=== PATIENT | male | born 1945 | race Caucasian/White ===

== ENCOUNTER 2019-03-16 07:28 | Observation (INO) | payer OTHER, MEDICAID ==
--- NOTE | ~2019-03-16 | H ---
[address] [address] HISTORY AND PHYSICAL Name: KEN LAZARO Room: [address] Allison Phillips#: [id number] Admission: 03/16/19 Attend Phys: Rikki Stone Discharge: 03/17/19 Date of : 49 Report #: [id number] THIS REPORT FOR: //name// For History and Physical please refer to the handwritten note in the patient's medical record. By: 1453Medical Records Staff DOUG /BLAIR
[~2019-03-16 07:28] MED LIST: ADVAIR 250-501 EACH INH; ADVAIR 500-501 EACH INH; GLIMEPIRIDE1 MG PO; IPRAT-ALBUT 0.5-3 ML INH; LEVAQUIN 500 M500 M1 PO; LIPITOR 20 MG T20 M1 PO; NORVASC 5 MG TAB5 MG PO; PREDNISONE 10 M10 M1; PROAIR HFA8.5 GM INH; SINGULAIR 10 MG10 M1 PO; VENTOLIN HFA 1818 GM; [UNRECOGNIZED DRUG - REMARK] PO
[2019-03-16 08:08] LABS: HEMATOCRIT 42.1 % (42.0-52.0); HEMOGLOBIN 14.3 gm/dL (14.0-18.0); MCH 30.5 pg (26.0-34.0); MCV 89.7 fL (80.0-100.0); MPV 7.7 fl. (7.2-11.1); RBC 4.69 mil/uL (4.50-6.00); WBC 4.7 thou/uL (4.0-11.0)
[2019-03-16 08:09] LABS: CALCIUM 9.1 mg/dL (8.5-10.1); CREATININE 0.8 mg/dL (0.6-1.3); POTASSIUM 3.5 mmol/L (3.5-5.1)
[2019-03-16 08:14] LABS: ALBUMIN 3.4 g/dL (3.4-5.0); TOTAL BILIRUBIN 0.6 mg/dL (<0.1-1.0); TOTAL PROTEIN 7.4 g/dL (6.4-8.2)
--- NOTE | 2019-03-16 16:58 | EKG ---
[place] [address] ELECTROCARDIOGRAM REPORT Name: KEN LAZARO Room: [address] M.R.#: [id number] Admission: 03/16/19 Attend Phys: Rikki Stone Discharge: Date of : 49 Report #: [id number] THIS REPORT FOR: //name// [facility] Test Date: 2019-03-16 Test Time: 07:45:04 Pat Name: KEN LAZARO Department: Room: [facility] Gender: M Calender Supervisor: : 1945 Requested By: Oc Ch Order Number: [id number] Italia MD: Jos Randolph Measurements Intervals [place] Rate: 83 P: 32 MI: 156 QRS: 80 QRSD: 110 T: QT: 415 QTc: 488 Interpretive Statements Sinus rhythm Atrial premature complexes Low voltage, extremity leads Borderline prolonged QT interval No previous ECG available for comparison Minor IVCD Electronically Signed On 03-16-2019 16:58:08 CDT by Jos Randolph [email or web address] <ELECTRONICALLY SIGNED> By: Jos Randolph MD, [facility] 03/16/19 1658 Jos Randolph MD, FAC /EPI
[2019-03-16 20:03] VITALS: BP 135/84
[2019-03-17] VITALS: BP 126/64
[2019-03-17 07:15] VITALS: BP 124/66
[2019-03-17] MEDS ORDERED: OXYCODONE HCL 55 MG PO (09:20)
[2019-03-17] MEDS ORDERED: IBUPROFEN 600600 M1 PO (09:20)
[2019-03-17] MEDS ORDERED: TYLENOL 8 HOUR650 MG PO (09:21)
[2019-03-17] MEDS ORDERED: LIDOCAINE 2%2 %/5 GM TOP (09:22)
[2019-03-17 09:27] VITALS: BP 124/66
--- NOTE | 2019-03-17 17:06 | PATH ---
[address] [address] PATHOLOGY RPT PROCEDURE Name: KEN LAZARO Room: [address] Allison Phillips#: [id number] Admission: 03/16/19 Date of : 49 Discharge: 03/17/19 Report #: [id number] Path Case #: [id number] LCA Accession Number: [id number] . 01 Material submitted: . hemorrhoids - INTERNAL AND EXTERNAL HEMORRHOIDS. Modifiers: external, INTERNAL . 01 Clinical history: . Internal/external hemorrhoid . 02 Diagnosis: Internal and external hemorrhoids: - Benign skin and colonic mucosa with prominent hemorrhoids showing focal organizing thrombosis. (LILI:tj; 03/17/2019) MBR 03/17/2019 1557 Local . 02 Electronically signed: . Asa Melendez MD, Pathologist NPI- [id number] . 01 Gross description: . Received in formalin labeled "Brown, Ken, internal and external hemorrhoids," are 6 segments of gardner-pink epithelial covered tissue ranging from 1.0 x 0.6 x 0.5 to 2.5 x 2.0 x 1.6 cm in maximum dimensions. The epithelial surfaces appear intact, without grossly apparent lesions. On cut section, the subepithelial tissue has a highly vascular appearance. Earthmoving Plant Operator tissue is submitted in cassettes A1-A3. (TSD; 03/16/2019) TOB/TOB 03/16/20191958 Local . 02 Pathologist provided ICD-10: K64.9 . 02 CPT . 835443 Specimen Comment: A courtesy copy of this report has been sent to Specimen Comment: [phone], . Specimen Comment: Report sent to / DR DMOINIQUE Performed at: [address], [place], [place] [id number] MD Lucien Pollock MD Phone: [phone] Performed at: 02 [facility] [address], [place], [place] [address] MD Asa Melendez MD Phone: [phone]
--- NOTE | 2019-03-24 12:56 | OP ---
[address] [address] OPERATIVE REPORT Name: TEJASKEN Jadiel Room: [address] Allison Phillips#: [id number] Admission: 03/16/19 Attend Phys: Rikki Stone Discharge: 03/17/19 Date of : 49 Report #: [id number] THIS REPORT FOR: //name// CC: Aftab Ch DICTATED BY: Arash Flannery DO DATE OF SERVICE: 03/16/2019 Patient of Oc Ch DO PREOPERATIVE DIAGNOSES: Internal and external hemorrhoids. POSTOPERATIVE DIAGNOSES: Internal and external hemorrhoids. SURGEON: Oc Ch DO ORTHODONTIST ASSISTANT: Arash Flannery DO, PGY-4 OPERATION PERFORMED: Internal and external hemorrhoidectomy of 3 columns. ESTIMATED BLOOD LOSS: 10. SPECIMEN: Hemorrhoids. COMPLICATIONS: None. INDICATIONS: The patient is a 73-year-old male with history of rectal bleeding. He was found on physical exam to have internal and external hemorrhoids that were the suspected source of bleeding. He did have a history of colonoscopy and was told to follow up in a shorter timeframe; however, he has failed to do so. He was informed of the risks and benefits of EUA and hemorrhoidectomy. He understood the risks and decided to proceed with surgery. He was encouraged to follow up for further colonoscopy examinations. TECHNIQUE: After informed consent was obtained, the patient was brought to the operating room and placed in the supine position. SCDs were on and running. Preoperative antibiotics were delivered. General anesthesia was administered with an LMA. The patient was placed into lithotomy and prepped and draped in the usual sterile fashion. A surgical pause was held to confirm proper patient and procedure. A digital rectal examination was performed. There were no palpable rectal masses or abnormalities. A Miller anoscope was placed into the anus and a circumferential inspection of the anal and rectal mucosa was undertaken. There were near circumferential external and internal hemorrhoids, the worst of which were the right anterior and left lateral[place] [address] OPERATIVE REPORT Name: KEN LAZARO Room: [address] MHolly.#: [id number] Admission: 03/16/19 Attend Phys: Rikki Stone Discharge: 03/17/19 Date of : 49 Report #: [id number] upon to perform an internal and external hemorrhoidectomy. The hemorrhoid column was grasped with an Allis and elevated. LigaSure small jaw energy device was used to amputate the hemorrhoidal tissue with care to stay away from the sphincter muscle. Dissection was carried up the length of the hemorrhoidal column until the apex was encountered and transected using the small jaw. This was carried out on the right anterior followed by the left lateral in the right posterior columns. A narrow additional column in the left posterior position was also excised. There was anoderm intact in between all excised columns. Two fingers easily fit into the anus and there was no evidence of stenosis. All of the excision beds were hemostatic. They were examined once more and continued to be hemostatic. Lidocaine jelly was then placed on the wounds. A 0.5% Marcaine with epi was injected circumferentially around the anal region as well as a bilateral pudendal nerve block. The patient tolerated the procedure well. His anus was washed and dressed with just the lidocaine jelly and ABD. He was emerged from anesthesia and transferred to the PACU in stable condition with plans to be admitted for observation for social reasons. <ELECTRONICALLY SIGNED> By: Oc Ch DO 03/24/19 1256 1026 1049Oc Ch DO /nt
== END 2019-03-17 10:28 | disposition home or self-care (01) ==
LOC: M.SUR 07:28 → M.TBA 10:21 → M.SUR 14:37 → M.3W 19:50
PROVIDERS: ADMIT Surgery
DX: K64.4 Residual hemorrhoidal skin tags (principal); K64.8 Other hemorrhoids; Z79.899 Other long term (current) drug therapy

== ENCOUNTER → 2019-03-28 | Outpatient (CLI) | payer MEDICARE, MEDICAID ==
[~2019-03-28] MED LIST changes: +IBUPROFEN 600600 M1 PO; +LIDOCAINE 2%2 %/5 GM TOP; +OXYCODONE HCL 55 MG PO; +TYLENOL 8 HOUR650 MG PO
== END ==
LOC: M.ULTRA 13:38
DX: N64.4 Mastodynia (principal); R92.8 Other abnormal and inconclusive findings on diagnostic imaging of breast; J44.9 Chronic obstructive pulmonary disease, unspecified

== ENCOUNTER 2019-08-01 15:29 | Inpatient (IN) | payer OTHER, MEDICAID ==
[~2019-08-01] VITALS: Ht 180.3 cm; Wt 101.2 kg
[2019-08-01 15:36] VITALS: BP 142/82
[2019-08-01 16:16] LABS: ABSOLUTE LYMPHOCYTES 1.1 thou/uL (0.8-5.3); ABSOLUTE MONOCYTES 0.8 thou/uL (0.0-1.2); ABSOLUTE NEUTROPHILS 7.2 thou/uL (1.6-8.1); BASOPHILS 0.2 %; EOSINOPHILS 0.1 %; HEMATOCRIT 44.2 % (42.0-52.0); HEMOGLOBIN 14.9 gm/dL (14.0-18.0); LYMPHOCYTES 12.4 %; MCH 30.1 pg (26.0-34.0); MCHC 33.7 g/dL (28.0-37.0); MCV 89.5 fL (80.0-100.0); MPV 8.3 fl. (7.2-11.1); NUCLEATED RBCS 0 /100WBC; PLATELET COUNT* 242 thou/uL (150-400); POLYS 78.3 %; RBC 4.93 mil/uL (4.50-6.00); WBC 9.2 thou/uL (4.0-11.0)
[2019-08-01 16:25] LABS: CREATININE 1.4 mg/dL (0.6-1.3); POTASSIUM 3.9 mmol/L (3.5-5.1)
[2019-08-01 16:28] LABS: APTT 26.8 Seconds (25.0-31.3); PROTIME 10.3 Seconds (9.20-11.50)
[2019-08-01 16:40] LABS: ALBUMIN 3.7 g/dL (3.4-5.0); CK-MB MASS 22.7 ng/mL (<0.5-3.6); TOTAL BILIRUBIN 0.8 mg/dL (<0.1-1.0); TOTAL PROTEIN 8.4 g/dL (6.4-8.2)
[2019-08-01 16:59] LABS: INFLUENZA A ANTIGEN Negative (Negative); INFLUENZA B ANTIGEN Negative (Negative)
[2019-08-01 17:37] VITALS: BP 147/70
[2019-08-01 18:00] VITALS: BP 167/89
--- NOTE | 2019-08-01 19:35 | NUR ---
RECEIVED PT FROM ER AT 1800. GET SITUATED TO ROOM. TELE IN PLACED TRACING SR. AOX4, UP WITH ASSIST, FALL PRECAUTION, O2 SAT 90'S 2L NC. WOUND ON L ELBOW NOTED. GIVE REPORT TO BINDU LAZO.
[2019-08-01 19:55] VITALS: BP 152/73
[2019-08-01 23:54] LABS: BE -5.5 mmol/L (-2 to +3); PCO2 43.6 mmHg (35.0-45.0); PO2 81.9 mmHg (75.0-100.0)
[2019-08-01 23:57] LABS: pH 7.297 (7.340-7.450)
[2019-08-02 00:19] VITALS: BP 134/70
--- NOTE | 2019-08-02 04:02 | NUR ---
ASSUMED CARE OF PT AT 1900. PT IS ALERT AND ORIENTED. PERRLA. NO COMPLAINTS OF PAIN. PT WAS VERY SOA AT THE BEGINNING OF THE SHIFT., PT WAS GIVEN LASIX AND AFTER URINATING SEVERAL TIMES HIS WORK OF BREATHIG DECREASED. PT IS ON 2 LITERS OF O2. PT IS IN AN IRREGULAR RYTHM ON THE TELEMETRY. PT IS RESTING COMFORTABLY IN BED. RESPIRATIONS ARE EVEN AND NONNLABORED. WILL CONTINUE TO MONITOR PT.
[2019-08-02 04:08] VITALS: BP 119/53
[2019-08-02 04:11] LABS: HEMATOCRIT 40.9 % (42.0-52.0); HEMOGLOBIN 13.7 gm/dL (14.0-18.0); MCH 30.3 pg (26.0-34.0); MCHC 33.6 g/dL (28.0-37.0); RBC 4.54 mil/uL (4.50-6.00); RDW-CV 15.2 % (10.5-14.5)
[2019-08-02 04:38] LABS: ALBUMIN 3.2 g/dL (3.4-5.0); CALCIUM 8.1 mg/dL (8.5-10.1); CREATININE 1.4 mg/dL (0.6-1.3); MAGNESIUM 2.2 mg/dL (1.8-2.4); POTASSIUM 4.4 mmol/L (3.5-5.1); TOTAL BILIRUBIN 0.4 mg/dL (<0.1-1.0); TOTAL PROTEIN 7.5 g/dL (6.4-8.2)
[2019-08-02 07:40] VITALS: BP 122/69
[2019-08-02 08:58] LABS: URINE BILIRUBIN NEGATIVE (Negative); URINE BLOOD TRACE (Negative); URINE CLARITY CLEAR; URINE COLOR YELLOW; URINE GLUCOSE-RANDOM NEGATIVE (Negative); URINE KETONES NEGATIVE (Negative); URINE LEUKOCYTES-REFLEX NEGATIVE (Negative); URINE NITRITE-REFLEX NEGATIVE (Negative); URINE PROTEIN NEGATIVE (Negative); URINE SPECIFIC GRAVITY 1.025 (1.005-1.030); URINE UROBILINOGEN 0.2 E.U./dl (0.2-1.0)
[2019-08-02 11:17] VITALS: BP 129/67
--- NOTE | 2019-08-02 12:08 | NUR ---
ASSUMED PT CARE AT 0800, AOX4, UP AD BHAVIN, O2 SAT 90'S 3L NC. TRACING SR ON TELE. PT COMPLAIN MILD PAIN ON L ELBOW WOUND. GOT AN ORDER FOR PAIN MEDS. PT ACCU CHECK, STARTED ON LOW DOSE SLIDING SCALE. PT HAS NEUROLOGY, VASCULAR, NEPHROLOGY CONSULT. PT ON FALL PRECAUTION. FELL AT HOME. VSS, AM ASSESSMENT CHARTED. HOURLY ROUNDING, CALL LIGHT WITHIN REACH, WILL CONTINUE TO MONITOR.
--- NOTE | 2019-08-02 14:45 | NUR ---
Pt is A&O. Resides at home alone. Independent. No DME. No hx of HH or SNF. Pt states that he does have a nurse through his insurance that comes out to see him. Goal is home at [place]. Following.
[2019-08-02 16:00] VITALS: BP 104/54
--- NOTE | 2019-08-02 16:27 | EKG ---
[place] [address] ELECTROCARDIOGRAM REPORT Name: EKN LAZARO Room: [address] ADM IN [facility]#: [id number] Admission: 08/01/19 Attend Phys: Carlos Manuel Villa Discharge: Date of : 49 Date of Service: 08/01/19 1538 Report #: [id number] THIS REPORT FOR: //name// [facility] ED Test Date: 2019-08-01 Test Time: 15:38:09 Pat Name: KEN LAZARO Department: Room: [facility] Gender: M Tariff Compiling Clerk: BRIT : 1945 Requested By: Ronald Cruz Order Number: [id number] MD: Jos Randolph Measurements Intervals [place] Rate: 89 P: 48 OK: 160 QRS: 89 QRSD: 106 T: 57 QT: 460 QTc: 560 Interpretive Statements Sinus rhythm Borderline right axis deviation Low voltage, precordial leads Borderline abnrm T, anterolateral leads Prolonged QT interval Compared to ECG 03/16/2019 07:45:04 Atrial premature complex(es) no longer present Electronically Signed On 08-02-2019 16:26:40 CDT by Jos Randolph [email or web address] <ELECTRONICALLY SIGNED> By: Jos Randolph MD, FACC 08/02/19 1626 1538 1538 Jos Randolph MD, [facility] /EPI
--- NOTE | 2019-08-02 16:30 | EKG ---
[place] [address] ELECTROCARDIOGRAM REPORT Name: KEN LAZARO Room: [address] ADM IN ..#: [id number] Admission: 08/01/19 Attend Phys: Carlos Manuel Villa Discharge: Date of : 49 Date of Service: 08/01/192005 Report #: [id number] THIS REPORT FOR: //name// [facility] Test Date: 2019-08-01 Test Time: 20:06:42 Pat Name: KEN LAZARO Department: Room: [address] Gender: M Energy Professional: [email or web address] : 1945 Requested By: Carlos Manuel Jaramillo Order Number: [id number] Italia MD: Jos Randolph Measurements Intervals [place] Rate: 103 P: 51 IA: 176 QRS: 108 QRSD: 109 T: 243 QT: 367 QTc: 481 Interpretive Statements Sinus tachycardia Premature atrial complexes Right axis deviation Nonspecific T abnrm, anterolateral leads Borderline prolonged QT interval Compared to ECG 03/16/2019 07:45:04 Right-axis deviation now present Electronically Signed On 08-02-2019 16:29:15 CDT by Jos Randolph [email or web address] <ELECTRONICALLY SIGNED> By: Jos Randolph MD, [facility] 08/02/19 1629 05 05 Jos Randolph MD, [facility] /EPI
--- NOTE | 2019-08-02 16:31 | EKG ---
[place] [address] ELECTROCARDIOGRAM REPORT Name: KEN LAZARO Room: [address] ADM IN ..#: [id number] Admission: 08/01/19 Attend Phys: Carlos Manuel Villa Discharge: Date of : 49 Date of Service: 08/01/1920[address] Report #: [id number] THIS REPORT FOR: //name// [facility] Test Date: 2019-08-01 Test Time: 20:26:25 Pat Name: KEN LAZARO Department: Room: [address] Gender: M Technology Sales Consultant: [email or web address] : 1945 Requested By: Carlos Manuel Jaramillo Order Number: [id number] Italia MD: Jos Randolph Measurements Intervals [place] Rate: 132 P: 60 ME: 51 QRS: 60 QRSD: 112 T: 255 QT: 282 QTc: 418 Interpretive Statements Sinus tachycardia with frequent and consecutive recurrent PACs Incomplete right bundle branch block Anteroseptal infarct, old possible Nonspecific T abnormalities, lateral leads Baseline wander in lead(s) V1,V4 Compared to ECG 03/16/2019 07:45:04 Incomplete right bundle-branch block now present Myocardial infarct finding now present T-wave abnormality now present Electronically Signed On 08-02-2019 16:30:30 CDT by Jos Randolph [email or web address] <ELECTRONICALLY SIGNED> By: Jos Randolph MD, [facility] 08/02/191629 25 25 Jos Randolph MD, [facility] /EPI
[2019-08-02 19:45] VITALS: BP 152/73
[2019-08-03] VITALS: BP 125/68
--- NOTE | 2019-08-03 01:55 | NUR ---
ASSUMED CARE OF PT AT 1900. PT IS ALERT AND ORIENTED. VSS. PERRLA. NO COMPLAINTS OF PAIN. PT IS IN SINUS RYTHM ON THE TELEMETRY. PT IS RESTING COMFORTABLY IN BED. RESPIRATIONS ARE EVEN AND NONLABORED. WILL CONTINUE TO MONITOR PT.
[2019-08-03 05:46] LABS: HEMATOCRIT 40.3 % (42.0-52.0); HEMOGLOBIN 13.6 gm/dL (14.0-18.0); MCH 30.3 pg (26.0-34.0); MCHC 33.8 g/dL (28.0-37.0); MCV 89.8 fL (80.0-100.0); MPV 8.1 fl. (7.2-11.1); RBC 4.49 mil/uL (4.50-6.00); RDW-CV 15.1 % (10.5-14.5); WBC 5.7 thou/uL (4.0-11.0)
[2019-08-03 06:10] LABS: ALBUMIN 2.9 g/dL (3.4-5.0); CALCIUM 8.4 mg/dL (8.5-10.1); CREATININE 0.8 mg/dL (0.6-1.3); MAGNESIUM 2.3 mg/dL (1.8-2.4); PHOSPHORUS* 3.2 mg/dL (2.5-4.9); POTASSIUM 4.6 mmol/L (3.5-5.1)
[2019-08-03 08:56] VITALS: BP 105/48
[2019-08-03 12:15] VITALS: BP 103/62
--- NOTE | 2019-08-03 12:42 | CON ---
[address] [address] CONSULTATION Name: TEJASDANAEKEN A Room: [address] IN ..#: [id number] Admission: 08/01/19 Attend Phys: Carlos Manuel Jaramillo, Discharge: Date of : 49 Report #: [id number] THIS REPORT FOR: //name// cc: Aftab La DO Aftab La DO ~ THIS REPORT FOR: //name// CC: Aftab Jaramillo DATE OF SERVICE: 08/02/2019 INFECTIOUS DISEASE CONSULTATION ATTENDING PHYSICIAN: Carlos Manuel Jaramillo MD REASON FOR EVALUATION: Positive blood culture with Gram-positive cocci. The patient had an episode of consciousness. HISTORY OF PRESENT ILLNESS: Chart reviewed, the patient examined. This is a 74-year-old who apparently lives by himself, does have a history of high blood pressure, who has had 2 episodes in the last 48 hours where he woke up on the floor, one was by his bed. He was unaware of any antecedent issues. Both times was in the middle of the night. This was complicated by profuse sweating. He is unaware of any fevers or chills. Denies significant pulmonary or gastrointestinal-related complaints, although he is on supplemental oxygen at this point. As per the evaluation, blood cultures were collected, 1/2 now with Gram-positive cocci, found to have a slightly elevated lactic acid of 2.4. Chest x-ray was, otherwise, unremarkable with exception of a nodule in left upper lobe and in the right lower lobe, calcified granuloma. He was found to have mildly elevated AST as well. Flu antigen and rapid strep were negative. Imaging studies of the chest and abdomen, former showed extensive centrilobular emphysematous changes, peribronchial wall thickening, question of a bronchitis. CT of the pelvis, cystic changes of the kidneys, some aneurysmal change of the infraabdominal aorta. With results of the positive blood culture, he was started empirically on parenteral vancomycin. At this point, he denies any significant pain or discomfort. No pulmonary or gastrointestinal-related complaints. He is generally lucid. ALLERGIES: None known. MEDICINES: Include glimepiride, enoxaparin, oxycodone, insulin lispro, amlodipine, Zosyn, methylprednisolone, ipratropium and albuterol inhaler, budesonide, and aspirin. PAST MEDICAL HISTORY: History of hypertension, diabetes mellitus, [place] [address] CONSULTATION Name: TEJASKEN A Room: [address]#: [id number] Admission: 08/01/19 Attend Phys: Carlos Manuel Jaramillo, Discharge: Date of : 49 Report #: [id number] orthopedic surgeries, appendectomy, COPD, and previous stroke. SOCIAL HISTORY: Former smoker. No illicit drug use. No ethanol. FAMILY HISTORY: Noncontributory. REVIEW OF SYSTEMS: Otherwise, unremarkable 10-point review of systems. PHYSICAL EXAMINATION: GENERAL: He is alert, appears to be in kefr-nn-omzzvewh distress, reasonably well nourished. VITAL SIGNS: Temperature 98.3, pulse 89, respirations 21, and blood pressure 129/67. SKIN: Warm, dry. HEENT: Normocephalic. Extraocular muscles intact. NECK: Supple. LUNGS: He has got some basilar crackles. HEART: Regular, may have a soft systolic murmur. ABDOMEN: Mildly obese, soft. There are no apparent peritoneal signs. No CVA tenderness. No spinal tenderness. GENITOURINARY AND RECTAL: Deferred. LABORATORY DATA: Initial CBC: White count of 9.2, H and H 14.9 and 44.2, and platelets of 242. Troponin less than 0.06. Lactic acid 2.4. Electrolytes: Sodium 138, potassium 3.9, chloride 101, bicarbonate is 26, anion gap of 11, BUN and creatinine 26 and 1.4, and glucose of 116. AST of 81, ALT 35, albumin 3.7, and total protein is 8.4. Estimated GFR of 50. Rapid strep A was negative. Influenza antigens for both A and B were negative. One out of two blood cultures Gram-positive cocci. IMAGING: Chest x-ray as described above, no acute cardiopulmonary process. ASSESSMENT AND PLAN: Positive blood culture in the setting of perhaps syncopal episode. It is not quite clear. There is some sleep disturbance either perhaps needs that evaluated as an outpatient. In the short term, we will treat empirically, although I suspect likely this is false positive at this point. I am not sure I have a clear sense of what led to the episodes needed ongoing evaluation. We will monitor expectantly. <ELECTRONICALLY SIGNED> By: Quan Katz MD 08/03/19 1242 1526 1940Jojoanne Katz MD /nt
--- NOTE | 2019-08-03 12:55 | NUR ---
WOUND NURSE: PATIENT SEEN TO ADDRESS SKIN TEAR ON [facility] LEFT ELBOW WHICH MEASURES 2.0 X 4.0 CM X 0.1 CM. PALE YELLOW TISSUE IN THE WOUND BED NONTED AND WITH SMALL AMOUNT OF SEROUSANGUINOUS DRAINAGE ON THE OLD DRESSING WHICH CONSISTED OF GAUZE UNDER OPSITE. THERE IS PERIWOUND ECCHYMOSIS NOTED. NO SWELLING WARMTH, OR INDURATION PRESENT. CLEANSED WITH SOAP AND WATER, RINSED WITH WATER, THEN PATTED DRY. APPLIED XEROFORM GAUZE UNDER BORDERED FOAM DRESSING. SECURED EDGES WITH PAPER TAPE PER PATIENT'S REQUEST HE STATES HIS DRESSINGS DON'T STAY ON WELL. PATIENT INSTRUCTED TO AVOID PRESSURE OR FRICTION TO THE AFFECTED AREA.
[2019-08-03 15:51] VITALS: BP 95/51
[2019-08-03 20:30] VITALS: BP 125/84
--- NOTE | 2019-08-04 06:53 | NUR ---
Transfer from telemetry unit at 1999. He was made med/sug status. He had been sinus rhythym on the monitor. He is alert and oriented x 4. He was upset that some of his things were thrown away by house keeping. His clothes and his wallet had everything in it and he has his cellphone and ore charger. He is on O2 at 2L n/c and his sat has been 94-98%. Fashion Director did speak with him and he isn't upset now.
[2019-08-04 16:00] VITALS: BP 112/67
--- NOTE | 2019-08-04 17:46 | CON ---
[address] [address] CONSULTATION Name: KEN LAZARO Jadiel Room: [address] IN .R.#: [id number] Admission: 08/01/19 Attend Phys: Carlos Manuel Jaramillo, Discharge: Date of : 49 Report #: [id number] THIS REPORT FOR: //name// cc: Aftab La DO Aftab La DO ~ THIS REPORT FOR: //name// CC: Aftab Jaramillo CONSULTING PHYSICIAN: Carlos Manuel Jaramillo MD REASON FOR CONSULTATION: Elevated creatinine and elevated CK. HISTORY OF PRESENT ILLNESS: A 74-year-old gentleman who was brought in with falls and weakness. He apparently was found down on the floor and was down for an unspecified period of time. He was found to have a creatinine of 1.4. He denies any nausea, vomiting or diarrhea. Denies any history of kidney disease and denies any NSAID use. In 02/2019, he had a creatinine of 0.8. He has been started on some IV fluids. He appears to be comfortable, has no complaints. REVIEW OF SYSTEMS: Constitutional, psych, heme, eyes, ENT, respiratory, cardiac, GI, , endocrine, all negative except as documented above. PAST MEDICAL HISTORY: Hypertension, history of appendectomy. CURRENT MEDICATIONS: Reviewed. FAMILY HISTORY: Not pertinent in this 74-year-old gentleman. SOCIAL HISTORY: Former smoker. PHYSICAL EXAMINATION: VITAL SIGNS: Blood pressure is 104/54, pulse 82, respirations 17, temperature 36.7. GENERAL: No acute distress. EYES: Open. EARS: Externally normal. NECK: Supple. CARDIOVASCULAR: Regular rate. LUNGS: No crackles. ABDOMEN: Soft. MUSCULOSKELETAL: Nontender. PSYCHIATRIC: Awake, alert. LABORATORY DATA: White cell count 8, hemoglobin 13.7, and platelets 169. Sodium 138, potassium 4.4, chloride 103, bicarbonate 25, BUN 27, creatinine 1.4, [place] [address] CONSULTATION Name: TEJASDANAEKEN A Room: [address]#: [id number] Admission: 08/01/19 Attend Phys: Carlos Manuel Jaramillo, Discharge: Date of : 49 Report #: [id number] glucose 244, calcium 8.1, magnesium 2.2, albumin 3.2. ASSESSMENT: 1. Acute kidney injury with admission creatinine of 1.4 in the setting of elevated CK while being found down. 2. Elevated CK of 2323. He is also on Lipitor and on admission, his CK was 3500. 3. Abdominal aortic aneurysm. Vascular Surgery was consulted. 4. Chronic obstructive pulmonary disease. 5. Right renal cyst 6.7 cm without complex features mentioned on CT. 6. Left kidney stone 7 mm, described as nonobstructing. PLAN: 1. Renal function stable. 2. Continue IV fluids. 3. Lipitor has been discontinued. Of note, he has ibuprofen listed on his outpatient medication list. This has been discontinued. We will check labs again in the a.m. and follow along with you. Thank you for requesting my opinion in the care and management of this patient. <ELECTRONICALLY SIGNED> By: Amelia Crisostomo MD 08/04/19 1746 1721 1958Abilionel Crisostomo MD /nt
--- NOTE | 2019-08-04 19:56 | NUR ---
PT IS ALERT AND ORIENTED X4. DENIES PAIN. UP WITH ASSIST X1 WITH A WALKER. CONTINUES ON IV ABTS. NEW IV STARTED IN RT UPPER ARM. O2 AT 2 LITERS. O2 SATS IN THE 90S. V/S STABLE. BED LOW AND LOCKED. CALL LIGHT IN REACH. WILL CONTINUE TO MONITOR.
[2019-08-04 22:30] VITALS: BP 127/86
[2019-08-05 03:35] LABS: CALCIUM 8.2 mg/dL (8.5-10.1); CREATININE 0.7 mg/dL (0.6-1.3); MAGNESIUM 1.9 mg/dL (1.8-2.4); POTASSIUM 3.9 mmol/L (3.5-5.1)
[2019-08-05 03:46] LABS: HEMATOCRIT 42.1 % (42.0-52.0); HEMOGLOBIN 14.2 gm/dL (14.0-18.0); MCH 30.2 pg (26.0-34.0); MCHC 33.7 g/dL (28.0-37.0); MCV 89.4 fL (80.0-100.0); MPV 8.3 fl. (7.2-11.1); RBC 4.71 mil/uL (4.50-6.00); RDW-CV 14.6 % (10.5-14.5); WBC 5.4 thou/uL (4.0-11.0)
--- NOTE | 2019-08-05 07:32 | NUR ---
PATIENT HAS SLEPT WELL THROUGHOUT MOST OF THE NIGHT. VSS ON 2L 02 VIA NASAL CANNULA. PATIENT UP WITH SBA TO THE BATHROOM. MEDICATIONS GIVEN ORDERED AND ASSESSMENT CHARTED. IV IN RIGHT UPPER ARM-SL. IV ABT'S GIVEN WITHOUT ANY ADVERSE SIDE EFFECTES NOTED. PATIENT INSTRUCTED TO USE CALL LIGHT WHEN NEEDING ASSISTANCE. HOURLY ROUNDS MADE. WILL CONTINUE WITH PLAN OF CARE AND NURSING TO MONITOR.
[2019-08-05 16:00] VITALS: BP 125/76
[2019-08-05 18:40] VITALS: BP 124/80
[2019-08-05 18:41] VITALS: BP 131/79
[2019-08-05 18:42] VITALS: BP 115/71
[2019-08-05 20:00] VITALS: BP 127/86
--- NOTE | 2019-08-05 20:10 | NUR ---
PT ALERT AND ORIENT X 4. DENIES PAIN . PT C/O OF SOB THIS AM. BREATHING TREATMENTS AND PREDNISONE RECEIVED WITH IMPROVED SYMPTOMS. CONTINUES ON IV ABTS. ON 2 LITERS WITH SATS IN THE MID 90S. ASSIST X 1 WITH ADLS AND TRANSFERS. SEEN BY NEUROLOGIST AND INFECTOUS DOCTORS TODAY. SWABS SEND TO LAB FOR MRSA. ORTHOSTATIC B/P DONE. SEE CHART FOR RESULTS. RESTING QUIETLY WITH BED LOW AND LOCKED WITH CALL LIGHT IN REACH. wILL CONTINUE TO MONITOR.
--- NOTE | 2019-08-06 06:58 | NUR ---
ASSUMED CARE OF PT 08/05/19 AT APPROX 1930. PT A&OX4, ON ROOM AIR, VSS. ASSESSMENTS AND HOURLY ROUNDINGS COMPLETED.
[2019-08-06 09:30] VITALS: BP 118/66
[2019-08-06 16:47] VITALS: BP 99/71
--- NOTE | 2019-08-06 18:47 | NUR ---
PATIENT PLEASANT AND COOPERATIVE W/ ASSESS AND CARES THIS SHIFT. CONVERSANT. NOTED DYSPNEA W/ CONVERSATION. DENIES DIZZINESS/LIGHTHEADEDNESS. DENIES PAIN. SEE MAR. EATING WELL. HRLY ROUNDS DONE. O2/RA. CURRENTLY SITTING UP ON SIDE OF BED WATCHING TV. CALL LIGHT IN REACH. ~TJRN
[2019-08-06 21:11] VITALS: BP 129/81
--- NOTE | 2019-08-07 04:49 | NUR ---
PT A&O, VSS ON RA. MEDS GIVEN ORDERED. NO C/O PAIN. PT SLEEPING ALL THROUGH THE NIGHT. HOURLY ROUNDINGS COMPLETED. WILL CONTINUE TO MONITOR.
[2019-08-07 07:20] VITALS: BP 124/77
--- NOTE | 2019-08-07 15:18 | NUR ---
SPOKE WITH PT.ABOUT POSSIBLE SNF AT DISCHARGE. HE SAID IM NOT GOING TO [facility]. HE ASKED ABOUT [facility]. CM WILL CALL TO SEE IF HIS INSURANCE IS IN NETWORK. 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 HE WAS SOA WITH SPEAKING. HE CALLED ROLA BACK IN ROOM AND SAID YOU TELL THAT THAT IM NOT GOING ANYWHERE BUT HOME. I WANT TO BE ABLE TO DRIVE MY TRUCK AND DO WHAT I WANT. ASKED HIM IF HE THOUGHT HE COULD TAKE CARE OF HIMSELF AT HOME. HE DID NOT ANSWER. HE SAID ONE BROTHER LIVES NEXT DOOR,[place]. ANOTHER ONE,DEANGELO, LIVES A FEW MILE AWAY. HE SAID DEANGELO WOULD BE MORE APT TO COME SEE HIM,THAN [place]. HIS SON LIVES IN [place] AND HAS MS. HIS DAUGHTER LIVES IN [place], BUT DOESN'T HAVE ANYTHING TO DO WITH HIM.
--- NOTE | 2019-08-07 17:49 | NUR ---
pt remained alert and oriented. pt resting in bed. fall risk precautions in place. hourly rounding completed. will continue to monitor.
[2019-08-07 20:00] VITALS: BP 126/78
--- NOTE | 2019-08-08 05:18 | NUR ---
ASSUMED PT CARE AT 1930. PT ALERT AND ORIENTED X4, POLITE AND COOPERATIVE WITH CARES. VSS ON RA. MEDS GIVEN ORDERED. NO C/O PAIN. PT SLEPT WELL OVERNIGHT. ANTICIPATING DISCHARGE TODAY. USES CALL LIGHT APPROPRIATELY. HOURLY ROUNDING IN PROGRESS, WILL CONTINUE TO MONITOR.
[2019-08-08 08:25] VITALS: BP 110/62
[2019-08-08 15:00] VITALS: BP 110/62
--- NOTE | 2019-08-08 15:00 | NUR ---
PT.TO DISCHARGE TODAY. O2 RESTING AND EXERCISE SATS TO BE DONE BY RT. DIFFICULTY FINGING HH AGENCY TO TAKE DUE TO BEING AT LIMIT FOR HH PTS. ISMA AT HOME [facility]/TIFFANIE SAID THEY COULD ACCEPT HIS INSURANCE AND GO TO [place]. FAXED REFERRAL AND DISCHARGE ORDERS TO [facility] [phone]. INFORMATION PUT ON DISCHARGE INSTRUCTIONS. PT.INFORMED.
[2019-08-08] MEDS ORDERED: RAYOS5 MG PO (15:31)
[2019-08-08] MEDS ORDERED: CEFUROXIME250 MG PO (15:32)
--- NOTE | 2019-08-08 17:04 | NUR ---
PT DISCHARGED TO HOME WITH HOME HEALTH. ALL DISCHARGEINSTRUCTIONSREVIEWED WITH THE PT. pT HAS ALL PAPERWORK AND PRESCRIPTIONS. PT IS STABLE .IV REMOVED FROM RT UPPER ARM. PT IS STABLE ON RA. WOUND CARE DRESSED WOUND TO LT ELBOW AND INFORMED THE PT TO CALL THE WOUND CARE CLINIC FOR TREATMENT. PT TRANSPORTED TO PERSONAL VEHICLE VIA W/C ACCOMPANIED BY STAFF.
--- NOTE | 2019-08-10 16:48 | EEG ---
[address] [address] EEG STUDY REPORT Name: KEN LAZARO Room: [address] IN .R.#: [id number] Admission: 08/01/19 Attend Phys: Carlos Manuel Jaramillo, Discharge: 08/08/19 Date of : 49 Report #: [id number] THIS REPORT FOR: //name// CC: Aftab Jaramillo DATE OF SERVICE: 08/03/2019 This patient had episodes of falls. EEG was done to evaluate the patient for possibility of seizure. EEG was done by placing the electrode by standard 10-20 system of electrode placement. Both referential and sequential montages were done for recording. Background activity in this patient's EEG is about 8 Hz and 30 microvolts. It is a symmetrical activity. Photic stimulation is unremarkable. Throughout the record, no active epileptiform activity was noted. IMPRESSION: Mild intermixed theta range slowing on both sides which is a nonspecific finding. Otherwise, no active epileptiform activity was noticed. Thank you very much for this referral. <ELECTRONICALLY SIGNED> By: Tato Ansari MD 08/10/19 1648 1829 1914Pgood Ansari MD /nt
--- NOTE | 2019-08-10 16:48 | CON ---
[address] [address] CONSULTATION Name: KEN LAZARO Room: [address] IN .#: [id number] Admission: 08/01/19 Attend Phys: Carlos Manuel Jaramillo, Discharge: 08/08/19 Date of : 49 Report #: [id number] THIS REPORT FOR: //name// cc: Aftab La DO Aftab La DO ~ THIS REPORT FOR: //name// CC: Aftab Jaramillo DATE OF SERVICE: 08/02/2019 HISTORY OF PRESENT ILLNESS: This is a 74-year-old male patient who was seen by me for evaluation for any neurological etiology for the patient's episode of syncope. The patient does not remember anything about these episodes. He is amnesic about that. There is no firsthand witness to that. That makes it difficult to evaluate. He basically fell down and in fact was on the floor for some time. His CPK was elevated. He does have an aneurysm, but there is no sign of rupture there and the aneurysm is in the aorta. REVIEW OF SYSTEMS: Indicates the patient has a longstanding difficulty with respiration. He is being seen by Pulmonary. He used to smoke, but does not smoke now. His chest x-ray shows emphysema. He is being followed by Pulmonology. A 14-point review of system was carried out. The patient has an abdominal aneurysm. He has COPD. I do not know what his baseline memory is. He does have rhabdo. He has a generalized weakness. The history in the chart indicates that the patient has CVA, but he cannot tell me if he has one and what does it shows. He denies any new visual, ENT symptoms. He does not have any GI, , musculoskeletal, constitutional, dermatological, hematological, psychiatric, throat symptom associated with present symptomatology. PAST MEDICAL HISTORY: Positive for COPD. FAMILY HISTORY: Negative for any early age stroke. SOCIAL HISTORY: He used to smoke. He drinks occasionally alcohol. PHYSICAL EXAMINATION: NEUROLOGIC: Indicate the patient is alert and responsive. He is able to follow simple command. His speech looks intact. I do not know what his baseline fund of knowledge and memory is. Cranial nerve examination 2-12 looks unremarkable. Strength, sensation, reflexes and tone looks symmetrical. I did not make the patient walk. I could not look at the patient's fundus. There is no meningeal sign. There is no carotid bruit. Pulses are difficult to feel. He does not have any edema, cyanosis or jaundice. CARDIAC: [place] [address] CONSULTATION Name: DANAE LAZAROJOEL Duvall Room: [address]#: [id number] Admission: 08/01/19 Attend Phys: Carlos Manuel Jaramillo, Discharge: 08/08/19 Date of : 49 Report #: [id number] LUNGS: He still appeared to have respiratory difficulty. VITAL SIGN: His blood pressure is 104/54. His respiration is 17, pulse is 82, temperature is 98.1. LABORATORY DATA: Indicate a white count of 8. Imaging study demonstrates that the CT scan showed a question of stroke, but the finding is not definite. Carotid Doppler appear mostly unremarkable. IMPRESSION: Difficult to form in this patient, but from clinical history, it would appear that is probably because of systemic problem, especially the patient's respiratory problem. It will be desirable to do the further workup. The patient really wants to do the further workup, especially MRI. He does have metal in his mouth. He understands the potential complication which can occur with that and we will schedule the MRI to make sure there is no etiology there, but the emphasis should be in working up this patient for any systemic cause for his problem. Thank you very much for this referral. We will follow this patient with you. <ELECTRONICALLY SIGNED> By: Tato Ansari MD 08/10/19 1648 192 10Tato Ansari MD /nt
== END 2019-08-08 16:30 | disposition home health service (06) | DRG 564 ==
LOC: M.ERS 15:29 → M.2W 17:31 → M.TBA-ER 17:31 → M.ORTHSURG 17:31 → M.2W 17:52 → M.ORTHSURG 08-03 19:57
PROVIDERS: Family Medicine; ADMIT Family Medicine
DX: T79.6XXA Traumatic ischemia of muscle, initial encounter (principal); N17.0 Acute kidney failure with tubular necrosis; R65.11 Systemic inflammatory response syndrome (SIRS) of non-infectious origin with acute organ dysfunction; J96.21 Acute and chronic respiratory failure with hypoxia; J18.9 Pneumonia, unspecified organism; I71.4 Abdominal aortic aneurysm, without rupture; I10 Essential (primary) hypertension; N20.0 Calculus of kidney; M48.02 Spinal stenosis, cervical region; E11.9 Type 2 diabetes mellitus without complications; J20.9 Acute bronchitis, unspecified; N28.1 Cyst of kidney, acquired; R41.3 Other amnesia; J32.4 Chronic pansinusitis; M50.223 Other cervical disc displacement at C6-C7 level; J43.2 Centrilobular emphysema; W06.XXXA Fall from bed, initial encounter; T46.6X5A Adverse effect of antihyperlipidemic and antiarteriosclerotic drugs, initial encounter; E66.01 Morbid (severe) obesity due to excess calories; Z68.31 Body mass index [BMI] 31.0-31.9, adult; Z79.899 Other long term (current) drug therapy; Z87.891 Personal history of nicotine dependence; Z79.84 Long term (current) use of oral hypoglycemic drugs; Z79.51 Long term (current) use of inhaled steroids; Z79.82 Long term (current) use of aspirin; Z86.73 Personal history of transient ischemic attack (TIA), and cerebral infarction without residual deficits; Z79.4 Long term (current) use of insulin; Y92.89 Other specified places as the place of occurrence of the external cause

== ENCOUNTER 2019-10-26 11:01 | Observation (INO) | payer OTHER, MEDICAID ==
[~2019-10-26] VITALS: Ht 172.7 cm; Wt 112.0 kg
[~2019-10-26 11:01] MED LIST changes: +CEFUROXIME250 MG PO; +RAYOS5 MG PO
[2019-10-26 11:48] LABS: ABSOLUTE LYMPHOCYTES 0.7 thou/uL (0.8-5.3); ABSOLUTE MONOCYTES 0.6 thou/uL (0.0-1.2); ABSOLUTE NEUTROPHILS 7.6 thou/uL (1.6-8.1); BASOPHILS 0.4 %; EOSINOPHILS 0.2 %; HEMATOCRIT 44.7 % (42.0-52.0); HEMOGLOBIN 15.3 gm/dL (14.0-18.0); LYMPHOCYTES 7.4 %; MCH 30.8 pg (26.0-34.0); MCHC 34.3 g/dL (28.0-37.0); MCV 89.8 fL (80.0-100.0); MONOCYTES 7.1 %; MPV 8.5 fl. (7.2-11.1); NUCLEATED RBCS 0 /100WBC; PLATELET COUNT* 234 thou/uL (150-400); POLYS 84.9 %; RBC 4.98 mil/uL (4.50-6.00); RDW-CV 15.5 % (10.5-14.5); WBC 8.9 thou/uL (4.0-11.0)
[2019-10-26 11:54] LABS: CALCIUM 9.1 mg/dL (8.5-10.1); POTASSIUM 3.9 mmol/L (3.5-5.1)
[2019-10-26 12:05] LABS: ALBUMIN 3.8 g/dL (3.4-5.0); TOTAL BILIRUBIN 0.6 mg/dL (<0.1-1.0); TOTAL PROTEIN 8.3 g/dL (6.4-8.2)
[2019-10-26 12:13] LABS: APTT 25.8 Seconds (25.0-31.3); PROTIME 10.7 Seconds (9.20-11.50)
[2019-10-26 13:50] LABS: CK-MB MASS 1.9 ng/mL (<0.5-3.6)
--- NOTE | 2019-10-26 14:59 | EKG ---
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[facility] : 1945 Requested By: Lauren Hanley Order Number: [id number] MD: Wong Guerrero Measurements Intervals [place] Rate: 100 P: FL: QRS: 68 QRSD: 79 T: 58 QT: 399 QTc: 515 Interpretive Statements Atrial fibrillation Ventricular premature complex Anteroseptal infarct, age indeterminate Prolonged QT interval Compared to ECG 08/01/2019 20:26:25 Ventricular premature complex(es) now present Prolonged QT interval now present T-wave abnormality no longer present Myocardial infarct finding still present Electronically Signed On 10-26-2019 14:57:21 CDT by Wong Guerrero [email or web address] <ELECTRONICALLY SIGNED> By: Wong Guerrero MD, FAC 10/26/19 1457 1113 1113 Wong Guerrero MD, FAC /EPI
[2019-10-26 15:57] LABS: URINE BILIRUBIN NEGATIVE (Negative); URINE BLOOD NEGATIVE (Negative); URINE CLARITY CLEAR; URINE COLOR YELLOW; URINE GLUCOSE-RANDOM NEGATIVE (Negative); URINE KETONES NEGATIVE (Negative); URINE LEUKOCYTES-REFLEX NEGATIVE (Negative); URINE NITRITE-REFLEX NEGATIVE (Negative); URINE PROTEIN NEGATIVE (Negative); URINE SPECIFIC GRAVITY <= 1.005 (1.005-1.030); URINE UROBILINOGEN 0.2 E.U./dl (0.2-1.0)
[2019-10-26 17:55] VITALS: BP 142/79
--- NOTE | 2019-10-26 18:00 | NUR ---
PT ARRIVED ON UNIT AROUND 182, [address] ON TELE, NC@4L, COVID 19 PRECAUTIONS- TRANSFERRED TO COVID UNIT, REPORT GIVEN TO RN ON COVID UNIT.
[2019-10-26 18:30] VITALS: BP 122/101
[2019-10-26 20:30] VITALS: BP 155/85
[2019-10-26 23:22] VITALS: BP 145/84
--- NOTE | 2019-10-27 00:52 | NUR ---
ASSUMED CARE AFTER PT TRANFER TO ROOM 109 UNPON ATRRIVAL TO ROOM PT C/P SOA AND REQUESTING RESP TX. DR VALLADARES NOTFIED AND ORDER RECIEVED. LUNG SOUNDS DIMISHED THROUGHOUT, 02 AT 4L NC. ASSESSMENT AND LUIS MANUEL BASE COMPLETED BOX LUNCH PROVIDED AND IV FLUIDS AND MEDICATION GIVEN PRESCRIBED.
[2019-10-27 03:20] VITALS: BP 145/76
[2019-10-27 08:00] VITALS: BP 138/81
[2019-10-27 12:00] VITALS: BP 134/76
--- NOTE | 2019-10-27 15:34 | CON ---
[address] [address] CONSULTATION Name: KEN LAZARO Jadiel Room: [address] M.RHarper#: [id number] Admission: 10/26/19 Attend Phys: Rikki Oro Discharge: Date of : 49 Report #: [id number] THIS REPORT FOR: //name// cc: Aftab La Adam J DO ~ THIS REPORT FOR: //name// CC: Aftab La DO Christopher Solorio DATE OF SERVICE: 10/27/2019 CARDIOLOGY CONSULTATION HISTORY OF PRESENT ILLNESS: The patient is a 74-year-old single white male who I was asked to see in the hospital today after he had a syncopal spell. The patient has had several hospitalizations here at [place]. He was actually here in 02/2019 with hemorrhoids and required surgery. He was here in July of this year. He had been weak. He apparently fell out of bed and awakened on the floor. He is not sure how he fell to the ground. He called the ambulance and was brought to [place] and admitted. He was seen by several consultations including Nephrology, Neurology. He apparently had an EEG because of his syncopal spell which showed no epileptiform activity. He was discharged in July. He had an MRA of the grand [place] of [place] and no acute abnormalities were noted. There was no evidence of stroke. He was found to have rhabdomyolysis with a CPK of 2323, acute kidney injury related to rhabdomyolysis. He had neck pain and had evidence of cervical disk problems. He was felt to have COPD. He was noted to have infrarenal abdominal aortic aneurysm measuring 4.5 cm. It was recommended he follow up with Vascular Surgery. He did have a history of hypertension, glucose intolerance. He states that since his discharge, he continues to wake up on the ground. There has been no seizure activity. Denied any vomiting, palpitations, diarrhea or bleeding. He has had no fever or cough. He does get short of breath and exerts himself. He apparently awakened in his kitchen on the floor. He had an abrasion to his left arm. He complained of being weak. He called his primary care physician who recommended he be brought to [facility] by ambulance. PAST MEDICAL HISTORY: Significant for hypertension, glucose intolerance. MEDICATIONS: On admission include amlodipine, Lipitor, glimepiride, albuterol inhaler. ALLERGIES: He had no known drug allergies. FAMILY HISTORY: His [place] [address] CONSULTATION Name: KEN LAZARO Room: [address] Allison ZhaoRHarper#: [id number] Admission: 10/26/19 Attend Phys: Rikki Oro Discharge: Date of : 49 Report #: [id number] SOCIAL HISTORY: He has been twice. Lives by himself in [place]. 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 REVIEW OF SYSTEMS: He has had no history of stroke. He has COPD. No history of liver disease. He has chronic kidney disease. No cancer. No psychiatric illness. PHYSICAL EXAMINATION: GENERAL: Revealed an elderly, disheveled male, appeared in no distress. VITAL SIGNS: He had a blood pressure 110/60, pulse is 80. He was afebrile. HEENT: He was anicteric. Conjunctivae are pink. Mucous membranes moist. NECK: Veins nondistended. No carotid bruits. CHEST: Clear to auscultation. CARDIOVASCULAR: Regular rate and rhythm. ABDOMEN: Soft. EXTREMITIES: Had trace edema. Dorsalis pedis pulse 1+ bilaterally. SKIN: Cool and dry. NEUROLOGIC: Nonfocal. RADIOLOGICAL DATA: His ECG showed a sinus rhythm, occasional PAC, PVC, septal Q-waves, nonspecific ST and T-wave change. The patient had a Cardiolite stress test in July after he had a syncopal spell that showed an ejection fraction of 62%. Resting images showed an apical defect, inferior defect, no reversible defects. Possible old inferior infarction. This is felt to be a low risk study. His workup included a portable chest x-ray that showed normal heart size, clear lung stewart. CT scan of the head showed atrophy. He had a CT scan of the chest using a PE protocol that showed no pulmonary embolus, evidence of emphysema. During his previous hospitalization, he had carotid Doppler study performed that showed minimal plaque. LABORATORY WORK: Sodium 139, potassium 3.9, BUN 15, creatinine 1.0. His glucose 115. His TSH in July 0.195. White blood cell count 8.9, hemoglobin 15.3. IMPRESSION AND RECOMMENDATIONS: 1. History of syncope. Apparently unwitnessed. Recommend discharge with an event recorder to rule out arrhythmia. 2. Glucose intolerance. 3. Hypertension. The patient is on a calcium sherrill. 4. Hyperlipidemia. The patient is on a statin drug. 5. Previous tobacco abuse. [address] [address] CONSULTATION Name: KEN LAZARO Room: [address] Allison Phillips#: [id number] Admission: 10/26/19 Attend Phys: Rikki Oro Discharge: Date of : 49 Report #: [id number] 6. Chronic obstructive pulmonary disease. 7. Abdominal aortic aneurysm. <ELECTRONICALLY SIGNED> By: Wong Guerrero MD, FACJulien 10/27/19 1534 1105 1148Damago Guerrero MD, DONTE /nt
--- NOTE | 2019-10-27 17:11 | NUR ---
Pt is A&O. Resides at home alone and plans to return home at dc. Independent. No DME. Hx of [facility] from last hospital stay, Pt said that he is not current with HH. No hx of SNF and Pt refuses to consider SNF. Pt wants his dtr to come and live with him, waiting for her response. No o2. Covid pending. Following.
--- NOTE | 2019-10-27 17:29 | 2DMMODE ---
[place] [address] 2 D/M-MODE ECHOCARDIOGRAM Name: KEN LAZARO Room: [address] M.R.#: [id number] Admission: 10/26/19 Attend Phys: Christopher Solorio Discharge: Date of : 49 Date of Service: 10/27/19 1726 Report #: [id number] THIS REPORT FOR: cc: Aftab La Adam J DO Blick, David R. MD [facility] ~ APPROVED REPORT Study performed: 10/27/2019 14:59:58 EXAM: Limited 2D Echocardiogram Patient Location: In-Patient BSA: 2.20 HR: 99 bpm BP: 134/76 mmHg Other Information Study Quality: Technically Limited Technically limited study due to uncooperative patient. Indications COPD Dyspnea 2D Dimensions IVSd: 15.46 (7-11mm) LVDd: 48.68 mm PWd: 11.51 (7-11mm) LVDs: 30.32 (25-40mm) Aortic Root: 40.51 mm Left Ventricle The left ventricle is normal size. Borderline concentric left ventricular hypertrophy. The left ventricular systolic function is normal. The left ventricular ejection fraction is within the normal range. LVEF is 55-60%. Right Ventricle Right ventricle is mildly dilated. The right ventricular systolic function is normal. Atria The left atrium size is normal. The right atrium size is [facility] [address] [place] [address] 2 D/M-MODE ECHOCARDIOGRAM Name: KEN LAZARO Room: [address] Jacqueline#: [id number] Admission: 10/26/19 Attend Phys: Christopher Sloorio Discharge: Date of : 49 Date of Service: 10/27/191725 Report #: [id number]. Aortic Valve The aortic valve is normal in structure. Mitral Valve The mitral valve is normal in structure. Tricuspid Valve The tricuspid valve is normal in structure. Pulmonic Valve Pulmonic valve is not well visualized. Great Vessels Aortic root is mildly dilated. Pericardium There is no pericardial effusion. <Conclusion> Borderline concentric left ventricular hypertrophy. LVEF is 55-60%. Right ventricle is mildly dilated. Aortic root is mildly dilated. <ELECTRONICALLY SIGNED> By: Wong Guerrero MD, FACC 10/27/19 172 25 25 Wong Guerrero MD, FACC /INF
--- NOTE | 2019-10-27 18:46 | NUR ---
VSS, ST TO AFIB WITH PVCS ON TELE, NC@2L, SOA, STAND BY ASSIST- PIVOTS TO COMMODE, COVID TESTING PENDING, ENHANCED PRECAUTIONS. SKIN TEAR LEFT FOREARM AND ELBOW, ABRASION ON TOP OF HEAD FROM FALL PRIOR TO ADMIT. HOURLY ROUNDING PERFORMED, POSSESSIONS AND CALL LIGHT WITHIN REACH.
[2019-10-27 20:00] VITALS: BP 139/81
[2019-10-28] VITALS (7 sets, daily range): BP systolic 118–146; BP diastolic 70–92
--- NOTE | 2019-10-28 04:43 | NUR ---
NO ACUTE EVENT THIS SHIFT. AOX4, STAND BY ASSIST, FALL PRECAUTION. DENIES PAIN. LAB CALLED FOR NOT DETECTED COVID, (SEE CHART). CALL LIGHT WITHIN REACH. HOURLY ROUNDING. WILL CONTINUE TO MONITOR.
[2019-10-28] MEDS ORDERED: PREDNISONE 20 M20 MG PO (10:11)
== END 2019-10-28 16:30 | disposition home or self-care (01) ==
LOC: M.ERS 11:01 → M.TBA-ER 15:33 → M.ORTHSURG 15:33 → M.2W 15:33 → M.ORTHSURG 20:18 → M.2W 10-27 11:20
PROVIDERS: Personal Emergency Response Attendant; ADMIT Internal Medicine
DX: J44.1 Chronic obstructive pulmonary disease with (acute) exacerbation (principal); Z20.818 Contact with and (suspected) exposure to other bacterial communicable diseases; R55 Syncope and collapse; I10 Essential (primary) hypertension; Z87.891 Personal history of nicotine dependence; F51.3 Sleepwalking [somnambulism]; J96.01 Acute respiratory failure with hypoxia; R05 Cough; E11.9 Type 2 diabetes mellitus without complications; I71.4 Abdominal aortic aneurysm, without rupture; S51.812A Laceration without foreign body of left forearm, initial encounter; W19.XXXA Unspecified fall, initial encounter; Y93.89 Activity, other specified; Y92.89 Other specified places as the place of occurrence of the external cause; Y99.8 Other external cause status

== ENCOUNTER 2019-11-10 14:40 | Observation (INO) | payer OTHER, MEDICAID ==
[~2019-11-10] VITALS: Ht 188 cm; Wt 109.3 kg
[~2019-11-10 14:40] MED LIST changes: +PREDNISONE 20 M20 MG PO
[2019-11-10 14:48] VITALS: BP 119/86
[2019-11-10 15:37] LABS: ABSOLUTE BASOPHILS 0.1 thou/uL (0.0-0.2); ABSOLUTE EOSINOPHILS 0.1 thou/uL (0.0-0.7); ABSOLUTE LYMPHOCYTES 1.2 thou/uL (0.8-5.3); ABSOLUTE MONOCYTES 0.5 thou/uL (0.0-1.2); ABSOLUTE NEUTROPHILS 4.1 thou/uL (1.6-8.1); EOSINOPHILS 1.9 %; HEMATOCRIT 39.4 % (42.0-52.0); HEMOGLOBIN 13.3 gm/dL (14.0-18.0); LYMPHOCYTES 20.4 %; MCH 30.6 pg (26.0-34.0); MCHC 33.7 g/dL (28.0-37.0); MCV 90.6 fL (80.0-100.0); MONOCYTES 8.5 %; MPV 7.9 fl. (7.2-11.1); NUCLEATED RBCS 0 /100WBC; PLATELET COUNT* 249 thou/uL (150-400); POLYS 68.2 %; RBC 4.35 mil/uL (4.50-6.00); RDW-CV 15.2 % (10.5-14.5)
[2019-11-10 15:50] LABS: CALCIUM 8.2 mg/dL (8.5-10.1); CREATININE 0.7 mg/dL (0.6-1.3); POTASSIUM 3.9 mmol/L (3.5-5.1)
[2019-11-10 15:54] LABS: ALBUMIN 3.2 g/dL (3.4-5.0); TOTAL BILIRUBIN 0.5 mg/dL (<0.1-1.0); TOTAL PROTEIN 6.8 g/dL (6.4-8.2)
[2019-11-10 19:46] LABS: URINE BILIRUBIN NEGATIVE (Negative); URINE BLOOD NEGATIVE (Negative); URINE CLARITY CLEAR; URINE COLOR YELLOW; URINE GLUCOSE-RANDOM NEGATIVE (Negative); URINE KETONES NEGATIVE (Negative); URINE LEUKOCYTES-REFLEX NEGATIVE (Negative); URINE NITRITE-REFLEX NEGATIVE (Negative); URINE PROTEIN NEGATIVE (Negative); URINE SPECIFIC GRAVITY <= 1.005 (1.005-1.030); URINE UROBILINOGEN 0.2 E.U./dl (0.2-1.0)
[2019-11-10 20:30] VITALS: BP 110/70
--- NOTE | 2019-11-10 20:30 | NUR ---
RECEIVED REPORT FROM ER, PT ADMITTED TO ROOM 215. O2 ON AT 3L/NC. TELEMETRY APPLIED SHOWING SR WITH PAC. NO ACUTE DISTRESS. SEE ADMISSION ASSESSMENT AND HX. WILL CONT TO MONITOR AND ASSIST NEEDED.
[2019-11-10 20:50] VITALS: BP 126/63
[2019-11-11] VITALS: BP 113/62
[2019-11-11 04:00] VITALS: BP 127/87
--- NOTE | 2019-11-11 06:19 | NUR ---
NO STOOLS TONIGHT. VOIDING WITHOUT DIFFICULTY. GAIT STEADY TO AND FROM BR. O2 REMAINS ON, SOA WITH ANY ACTIVITY. TELEMETRY ON SHOWING SR WITH OCC PAC. NPO SINCE MN FOR POSS TEST THIS AM. HS GOALS OF REST AND SAFETY ACHIEVED.
[2019-11-11 08:51] LABS: HEMATOCRIT 37.1 % (42.0-52.0); HEMOGLOBIN 12.6 gm/dL (14.0-18.0); MCH 30.7 pg (26.0-34.0); MCV 90.3 fL (80.0-100.0); MPV 7.7 fl. (7.2-11.1); RBC 4.1 mil/uL (4.50-6.00); RDW-CV 14.9 % (10.5-14.5); WBC 3.6 thou/uL (4.0-11.0)
[2019-11-11 09:09] LABS: ALBUMIN 3.1 g/dL (3.4-5.0); CALCIUM 8.4 mg/dL (8.5-10.1); CREATININE 0.8 mg/dL (0.6-1.3); POTASSIUM 4.8 mmol/L (3.5-5.1); TOTAL BILIRUBIN 0.5 mg/dL (<0.1-1.0); TOTAL PROTEIN 6.7 g/dL (6.4-8.2)
--- NOTE | 2019-11-11 12:54 | EKG ---
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1945 Requested By: Ronald Cruz Order Number: [id number] MD: Wong Guerrero Measurements Intervals [place] Rate: 82 P: 38 TN: 159 QRS: 67 QRSD: 116 T: 61 QT: 388 QTc: 453 Interpretive Statements Sinus rhythm artifact noted Nonspecific intraventricular conduction delay Borderline low voltage, extremity leads Compared to ECG 10/26/2019 11:13:37 Intraventricular conduction delay now present Ventricular premature complex(es) no longer present Myocardial infarct finding no longer present Prolonged QT interval no longer present Electronically Signed On 11-11-2019 12:53:12 CDT by Wong Guerrero [email or web address] <ELECTRONICALLY SIGNED> By: Wong Guerrero MD, [facility] 11/11/19 1253 1538 1538 Wong Guerrero MD, [facility] /EPI
[2019-11-11 13:15] VITALS: BP 120/70
[2019-11-11] MEDS ORDERED: PROTONIX40 M2 PO (16:22)
--- NOTE | 2019-11-11 16:51 | NUR ---
PATIENT RETURNING FROM EGD TODAY. HEART HEALTHY DIET ORDERED AND RECOMMENDATIONS FOR FOOLOW UP WITH GI AND PPI FOR 3 MONTHS. POSSIBLE DISCHARGE TO HOME TOMORROW. HOURLY ROUDNIGN COMPLETED FOR PATIENT SAFETY.
[2019-11-11 20:00] VITALS: BP 122/60
[2019-11-12] VITALS: BP 114/63
[2019-11-12 04:00] VITALS: BP 116/64
[2019-11-12 05:21] LABS: HEMATOCRIT 35.4 % (42.0-52.0); MCH 30.4 pg (26.0-34.0); MCHC 33.9 g/dL (28.0-37.0); MCV 89.9 fL (80.0-100.0); MPV 7.9 fl. (7.2-11.1); RBC 3.93 mil/uL (4.50-6.00); RDW-CV 15.3 % (10.5-14.5); WBC 7.1 thou/uL (4.0-11.0)
--- NOTE | 2019-11-12 05:33 | NUR ---
No acute event this shift. Pt denies pain. O2 sat 90's 2l NC. Sinus rhythm on tele. Pt sleep most of the night. Will continue to monitor.
[2019-11-12 05:36] LABS: CALCIUM 8.3 mg/dL (8.5-10.1); CREATININE 0.7 mg/dL (0.6-1.3); POTASSIUM 4.6 mmol/L (3.5-5.1)
[2019-11-12 08:00] VITALS: BP 115/59
--- NOTE | 2019-11-12 08:00 | NUR ---
AM ASSESSMENT COMPLETE, DEFER TO COMPUTER CHARTING. 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 02 ON 2L PER NC, SOA NOTED WITH ACTIVITY - ENCOURAGED TO USE PURSED LIP BREATHING TECHNIQUE TO ASSIST WITH RECOVERING FROM SOA. ANXIOUS, REASSURANCE GIVEN. DENIES CHEST PAIN, DIZZINESS, NAUSEA OR ABD DISCOMFORT AT THIS TIME. SITTING ON SIDE BED, CALL LIGHT WITHIN REACH. WILL MONITOR.
[2019-11-12] MEDS ORDERED: PROTONIX40 M2 PO (08:40)
--- NOTE | 2019-11-12 12:19 | NUR ---
DISCHARGE ORDERS RECEIVED. AU[employer]ER AUTOMOBILE AND SALINE LOCK DC'D. EDUCATED ON DISCHARGE INSTRUCTIONS, VERBALIZED UNDERSTANDING HAVING NO QUESTIONS. GIVEN WRITTEN DISCHAGE INSTRUCTIONS FOR REINFORCEMENT TEACHING.
[2019-11-12 12:47] VITALS: BP 115/59
--- NOTE | 2019-11-15 17:07 | PATH ---
[address] [address] PATHOLOGY RPT PROCEDURE Name: KEN LAZARO Room: [address] Allison Phillips#: [id number] Admission: 11/10/19 Date of : 49 Discharge: 11/12/19 Report #: [id number] Path Case #: [id number] [facility] Accession Number: [id number] . 01 Material submitted: . stomach - ANTRAL BIOPSY FOR H. PYLORI FOR DUODENAL ULCER . 01 Clinical history: . For H. pylori for duodenal ulcer . 02 Diagnosis: "Antral biopsy for H. pylori for duodenal ulcer", biopsy: - Gastric antral-type mucosa with mild chronic active gastritis, mild activity. - H. pylori organisms PRESENT in large numbers by immunohistochemical stain (block A1); control reacted appropriately. . (LUZW:halie; 11/15/2019) [facility] 11/15/2019 1152 Local . 02 Electronically signed: . Teresa Arenas MD, Pathologist NPI- [id number] . 01 Gross description: . The specimen is received in formalin, labeled "Brown, Ken, antral biopsy" and consists of a fragment of pink-gardner tissue measuring 0.5 x 0.3 cm which is entirely submitted in A1. (SDY; 11/14/2019) SYU/SYU 11/14/2019 1606 Local . 02 Pathologist provided ICD-10: K29.50, B96.81 . 02 CPT . 823046, F87089 Specimen Comment: A courtesy copy of this report has been sent to [phone] Specimen Comment: [phone], Specimen Comment: Report sent to ,DR SHELTON / DR DOMINIQUE Performed at: [address], [place], [place] [id number] MD Lucien Pollock MD Phone: [phone] Performed at: 02 [facility] [address], [place], [place] [address] MD Asa Melendez MD Phone: [phone]
--- NOTE | 2019-11-20 11:05 | CON ---
[address] [address] CONSULTATION Name: DANAE LAZAROJOEL Duvall Room: [address] Allison Phillips#: [id number] Admission: 11/10/19 Attend Phys: Kristin Gutierrez MD Discharge: 11/12/19 Date of : 49 Report #: [id number] THIS REPORT FOR: //name// cc: Aftab La Adam J DO ~ THIS REPORT FOR: //name// CC: Aftab Sterling DO DATE OF SERVICE: 11/11/2019 REASON FOR CONSULTATION: Epigastric pain and dark stools. IMPRESSION: 1. Epigastric pain associated with dark tarry stools -- suspect peptic ulcer disease. 2. Personal history of colon polyps with the patient being overdue for colonoscopy at this time. 3. Chronic obstructive pulmonary disease, which requires chronic oxygen for the same at 2 liters per minute. RECOMMENDATIONS: 1. We will proceed with upper endoscopy today and make further recommendations thereafter. 2. The patient will also need to get a colonoscopy either during this hospital stay or if his upper endoscopy is revealing for a source of his GI bleeding, this can be done with it to evaluate as an outpatient. I have discussed the plans with the patient as well and he is agreeable to the same. HISTORY: The patient is a 74-year-old white male with COPD, which requires him to be on at least 2-3 liters per day, who presented to the emergency room with complaints of epigastric pain associated with dark stools. He denies any complaints of any dysphagia, odynophagia. He had been taking some Aleve recently, but once he contacted his doctor, Dr. Aftab La, he told him to discontinue the Aleve and to come to the Emergency Room. He denies any complaints of any problem with his bowels, bowel frequency or any other issues. He denies associated weight loss. He does have personal history of colon polyps and was overdue for colonoscopy earlier this year because of the piecemeal resection of a polyp plus large multiple polyps being notable and he is not agreeable to proceed with the same. He is admitted to the hospital for further [place] [address] CONSULTATION Name: KEN LAZARO Jadiel Room: [address] Allison Phillips#: [id number] Admission: 11/10/19 Attend Phys: Kristin Gutierrez MD Discharge: 11/12/19 Date of : 49 Report #: [id number] ALLERGIES: None. MEDICATIONS: At home include albuterol, Advair, glimepiride and ipratropium bromide with albuterol inhaler. He also takes steroids off and on. PAST MEDICAL HISTORY: Remarkable for hypertension, COPD. He has had previous left foot surgery, right knee surgery, right fourth finger surgery. SOCIAL HISTORY: The patient is a former smoker, quit over a year ago, drinks occasional alcohol. FAMILY HISTORY: Negative. PHYSICAL EXAMINATION: GENERAL: Pleasant 74-year-old gentleman who appears older than his stated age. CARDIOPULMONARY: Revealed a regular rate and rhythm. LUNGS: Clear with diminished breath sounds. ABDOMEN: Soft and minimally tender in epigastric area. No rebound or guarding noted. LABORATORY DATA: From the revealed a white count of 6.0, hemoglobin 13.3, platelet count 249,000, MCV 90.6 and RDW is 15.2. His hemoglobin on the went down to 12.6. His admitting sodium 139, potassium 3.9, chloride 105, bicarbonate 26, BUN 16 and creatinine 0.7. Total bilirubin 0.5, alkaline phosphatase is 83, AST 12, ALT 20, albumin 3.2. The patient did undergo full CT scan of the abdomen and pelvis on the which revealed the liver to be normal. Gallbladder appeared normal as well. Spleen is normal in size. Pancreas is normal. No evidence for any problems with any adrenals or kidneys. He has a 6.5 cm cyst within the right kidney, which has been present for quite some time. There is also a smaller one in the left kidney measuring 1.75 cm. There are some calculi noted within the kidneys as well. The upper and lower GI tract did not appear to be particularly abnormal. DISCUSSION: At the present time, the patient has had problem with melena with associated epigastric pain. We will proceed with upper endoscopy today and make further recommendations thereafter. I have discussed the plans with the patient as well and he is agreeable to the same. <ELECTRONICALLY SIGNED> By: Davion Dangelo DO 11/20/19 1105 1108 1151Davion Dangelo DO /nt
== END 2019-11-12 13:30 | disposition home or self-care (01) ==
LOC: M.ERS 14:40 → M.2W 15:51 → M.TBA-ER 15:51 → M.2W 21:43
PROVIDERS: Family Medicine; ADMIT Internal Medicine; ATTEND Internal Medicine
DX: K29.81 Duodenitis with bleeding (principal); K44.9 Diaphragmatic hernia without obstruction or gangrene; R10.13 Epigastric pain; K92.1 Melena; J44.9 Chronic obstructive pulmonary disease, unspecified; F51.3 Sleepwalking [somnambulism]; I10 Essential (primary) hypertension

== ENCOUNTER 2019-12-21 08:59 | Inpatient (IN) | payer OTHER, MEDICAID ==
[~2019-12-21] VITALS: Ht 182.9 cm; Wt 115.0 kg
[~2019-12-21 08:59] MED LIST changes: +PROTONIX40 M2 PO
[2019-12-21 09:09] VITALS: BP 124/78
[2019-12-21 09:38] LABS: BE -2.1 mmol/L (-2 to +3); PCO2 34.2 mmHg (35.0-45.0)
[2019-12-21 09:39] LABS: ABSOLUTE LYMPHOCYTES 0.6 thou/uL (0.8-5.3); ABSOLUTE MONOCYTES 1.4 thou/uL (0.0-1.2); ABSOLUTE NEUTROPHILS 9.5 thou/uL (1.6-8.1); BASOPHILS 0.1 %; EOSINOPHILS 0.1 %; HEMATOCRIT 41.6 % (42.0-52.0); HEMOGLOBIN 13.9 gm/dL (14.0-18.0); LYMPHOCYTES 4.8 %; MCH 30.2 pg (26.0-34.0); MCHC 33.5 g/dL (28.0-37.0); MCV 90.2 fL (80.0-100.0); MPV 8.2 fl. (7.2-11.1); NUCLEATED RBCS 0 /100WBC; PLATELET COUNT* 191 thou/uL (150-400); RBC 4.61 mil/uL (4.50-6.00); RDW-CV 15.3 % (10.5-14.5); WBC 11.5 thou/uL (4.0-11.0)
[2019-12-21 09:48] LABS: CALCIUM 8.9 mg/dL (8.5-10.1); CREATININE 1.1 mg/dL (0.6-1.3); POTASSIUM 3.9 mmol/L (3.5-5.1)
[2019-12-21 09:59] LABS: ALBUMIN 2.9 g/dL (3.4-5.0); MAGNESIUM 2.3 mg/dL (1.8-2.4); TOTAL BILIRUBIN 0.9 mg/dL (<0.1-1.0); TOTAL PROTEIN 8.1 g/dL (6.4-8.2)
[2019-12-21 12:03] VITALS: BP 125/77
--- NOTE | 2019-12-21 14:51 | EKG ---
[place] [address] ELECTROCARDIOGRAM REPORT Name: KEN LAZARO Room: [address] ADM IN [facility]#: [id number] Admission: 12/21/19 Attend Phys: Howard Hart, Discharge: Date of : 49 Date of Service: 12/21/19 0912 Report #: [id number] THIS REPORT FOR: //name// [facility] ED Test Date: 2019-12-21 Test Time: 09:12:13 Pat Name: KEN LAZARO Department: Room: [facility] Gender: M Safe Expert: MIGUEL : 1945 Requested By: Lauren Hanley Order Number: [id number] MD: Wong Guerrero Measurements Intervals [place] Rate: 126 P: 32 WV: 141 QRS: 66 QRSD: 116 T: -75 QT: 298 QTc: 432 Interpretive Statements Sinus tachycardia Multiple and consecutive supraventricular premature complexes Incomplete right bundle branch block Borderline ST depression, lateral leads Compared to ECG 11/10/2019 15:38:45 supraventricular premature complex(es) now present Incomplete right bundle-branch block now present ST (T wave) deviation now present Sinus rhythm no longer present Electronically Signed On 12-21-2019 14:51:03 CDT by Wong Guerrero [email or web address] <ELECTRONICALLY SIGNED> By: Wong Guerrero MD, [facility] 12/21/19 1451 1 1 Wong Guerrero MD, [facility] /EPI
[2019-12-21 16:37] LABS: CALCIUM 8.3 mg/dL (8.5-10.1); CREATININE 0.8 mg/dL (0.6-1.3); POTASSIUM 4.3 mmol/L (3.5-5.1)
[2019-12-21 17:21] LABS: URINE BLOOD NEGATIVE (Negative); URINE CLARITY CLEAR; URINE COLOR YELLOW; URINE GLUCOSE-RANDOM NEGATIVE (Negative); URINE KETONES 2+ (Negative); URINE LEUKOCYTES NEGATIVE (Negative); URINE NITRITE NEGATIVE (Negative); URINE PROTEIN 1+ (Negative); URINE SPECIFIC GRAVITY 1.025 (1.005-1.030); URINE UROBILINOGEN 0.2 E.U./dl (0.2-1.0)
[2019-12-21 17:28] LABS: ICTOTEST (BILI CONFIRMATORY) Negative (Negative); URINE BILIRUBIN 1+ (Negative)
[2019-12-21 17:56] VITALS: BP 105/61
[2019-12-21 22:00] VITALS: BP 107/62
[2019-12-22] VITALS: BP 110/60
[2019-12-22 04:00] VITALS: BP 107/61
[2019-12-22 04:29] LABS: HEMATOCRIT 36.6 % (42.0-52.0); HEMOGLOBIN 12.3 gm/dL (14.0-18.0); MCH 30.6 pg (26.0-34.0); MCHC 33.7 g/dL (28.0-37.0); MCV 90.9 fL (80.0-100.0); MPV 8.8 fl. (7.2-11.1); NUCLEATED RBCS 0 /100WBC; PLATELET COUNT* 158 thou/uL (150-400); RBC 4.02 mil/uL (4.50-6.00); RDW-CV 15.7 % (10.5-14.5); WBC 5.8 thou/uL (4.0-11.0)
[2019-12-22 04:53] LABS: ALBUMIN 2.1 g/dL (3.4-5.0); CALCIUM 8.8 mg/dL (8.5-10.1); CREATININE 0.8 mg/dL (0.6-1.3); MAGNESIUM 2.3 mg/dL (1.8-2.4); POTASSIUM 4.3 mmol/L (3.5-5.1); TOTAL BILIRUBIN 0.3 mg/dL (<0.1-1.0); TOTAL PROTEIN 6.5 g/dL (6.4-8.2)
[2019-12-22 06:15] LABS: ABSOLUTE LYMPHOCYTES 0.3 thou/uL (0.8-5.3); ABSOLUTE NEUTROPHILS 5.5 thou/uL (1.6-8.1)
[2019-12-22 06:16] LABS: ANISOCYTOSIS 1+; PLATELET ESTIMATE ADEQUATE; POIKILOCYTOSIS 1+
[2019-12-22 08:00] VITALS: BP 99/55
--- NOTE | 2019-12-22 09:34 | EKG ---
[place] [address] ELECTROCARDIOGRAM REPORT Name: KEN LAZARO Room: [place] [address] ADM IN [facility]#: [id number] Admission: 12/21/19 Attend Phys: Howard Hart, Discharge: Date of : 49 Date of Service: 12/21/19 1329 Report #: [id number] THIS REPORT FOR: //name// [facility] Test Date: 2019-12-21 Test Time: 13:29:43 Pat Name: KEN LAZARO Department: Room: [facility] Gender: M Header Boss: JTH : 1945 Requested By: Howard Hart Order Number: [id number] Reading MD: Wong Guerrero Measurements Intervals [place] Rate: 96 P: 60 TX: 162 QRS: 81 QRSD: 122 T: 33 QT: 395 QTc: 500 Interpretive Statements Sinus tachycardia low voltage Supraventricular bigeminy and consecutive supraventricular complexes Nonspecific intraventricular conduction delay Borderline T abnormalities, anterior leads Compared to ECG 12/21/2019 09:12:13 no change Electronically Signed On 12-22-2019 9:34:23 CDT by Wong Guerrero [email or web address] <ELECTRONICALLY SIGNED> By: Wong Guerrero MD, FAC 12/22/19 0934 1329 1329 Wong Guerrero MD, FAC /EPI
[2019-12-22 12:00] VITALS: BP 106/68
--- NOTE | 2019-12-22 17:40 | CON ---
[facility] [address] [place] [address] CONSULTATION Name: KEN LAZARO Room: [place] [address] ADM IN .R.#: [id number] Admission: 12/21/19 Attend Phys: Howard Hart MD Discharge: Date of : 49 Report #: [id number] THIS REPORT FOR: //name// cc: Aftab La DO Aftab La DO ~ THIS REPORT FOR: //name// CC: Aftab Hart DATE OF SERVICE: 12/21/2019 REQUESTING PHYSICIAN: Howard Hart M.D. INDICATION FOR CONSULTATION: Acute hypoxemic respiratory failure. HISTORY OF PRESENT ILLNESS: This is a 74-year-old gentleman. His past medical history is as mentioned below. This includes an extensive history of smoking. He discontinued smoking about 4 years ago. The patient does have a history of COPD, and according to the ER records, he has oxygen at home. The patient has had 2 recent admissions to this hospital. The last admission was with an acute upper gastrointestinal bleed. The patient had melena and was found to have a duodenal ulcer. Shortly before that, the patient had another admission with syncope. The patient is now admitted here with acute shortness of breath for the last several days. The patient has also been coughing. He has been bringing up small amounts of sputum. He at this time does not have chest pain. He did not report a runny nose or sore throat. Did not have fever or chills. There is no increase in swelling of lower extremities or calf pain. The patient, however, was in severe respiratory distress on presentation and therefore was placed on a BiPAP. The patient was on a BiPAP at the time of my evaluation, which limits evaluation. The patient does have a history of recent melena as is described above. He also does have a history of disturbed sleep at night as well as sleepiness during the day and he has had parasomnias, particularly he has had a sleep walking. REVIEW OF SYSTEMS: For 12 points is negative except as mentioned above. The patient did not have abdominal complaints at this time. PAST MEDICAL HISTORY: COPD according to the ER records, he is on oxygen 3 liters at home. There is a clinical history consistent with obstructive sleep apnea. The patient has not been previously diagnosed. Parasomnias/sleep walking. Recent acute upper gastrointestinal bleed secondary to a duodenal ulcer. Recent admission to this hospital with syncope[place] [address] CONSULTATION Name: KEN LAZARO Jadiel Room: [address] IN [facility]#: [id number] Admission: 12/21/19 Attend Phys: Howard Hart MD Discharge: Date of : 49 Report #: [id number] history of rhabdomyolysis. However, creatinine had only elevated to my knowledge mildly to around 1.4. His baseline creatinine is normal at 1.0. Hypertension, appendectomy, left foot surgery, right knee surgery, right finger surgery, and left abdominal lymph node removed. The patient's last available echocardiogram from about 1-1/2 months ago showed the left ventricular ejection fraction of 55-60%. The tricuspid valve is reported to be unremarkable. SOCIAL HISTORY: Has an extensive history of smoking, unable to quantify exactly at this time, he discontinued 4 years ago. No known history of heavy alcohol use or illegal drug use. CURRENT MEDICATIONS: List in [facility] reviewed. HOME MEDICATIONS: List also in [employer] reviewed. ALLERGIES: IBUPROFEN. FAMILY HISTORY: Brother has a history of coronary artery disease and had a heart attack. PHYSICAL EXAMINATION: GENERAL: The patient did appear to be in respiratory distress, despite being on BiPAP, he did have labored respirations, he is on a BiPAP of 12/6 with 40% FiO2. His respiratory rate was elevated to the high 20s, around 28. He was pulling a large tidal volume of around 800 or 900 mL. VITAL SIGNS: He had a pulse of 90 and a blood pressure of 125/77, afebrile with a temperature of 36.1. Body mass index is elevated to 33. HEENT: Head is normocephalic and atraumatic. Pupils are equal and reactive. He does appear to have a narrow airway. NECK: Does not show raised JVP, asymmetry, mass, or lymph nodes. CHEST: Symmetrical expansion on inspection and palpation. On auscultation, breath sounds are bilaterally equal, but decreased. Expirations are prolonged. He does have a high respiratory rate. I do not hear any added sounds. HEART: ____. There is no murmur. ABDOMEN: Soft and nontender. LOWER EXTREMITIES: Show no edema, no calf tenderness. SKIN: Dry and intact. NEUROLOGIC: Moves all extremities bilaterally equally and spontaneously with no focal deficit identified. EXTREMITIES: Lower extremities, trace edema, no calf tenderness. SKIN: Dry and intact. LABORATORY AND DIAGNOSTIC STUDIES: The patient's ____ is reviewed. There are extensive infiltrates in the right lung. There are also smaller infiltrate in the left lower lobe. These findings are new compared to the patient's previous chest x-ray from 11/10/2019. The patient's arterial blood gas indicates acute [facility] [address] [place] [address] CONSULTATION Name: KEN LAZARO Room: [address] IN [facility]#: [id number] Admission: 12/21/19 Attend Phys: Howard Hart MD Discharge: Date of : 49 Report #: [id number] hypoxemic respiratory failure, which is now compensated with the use of BiPAP. The patient's CBC as well as chemistries are in [facility]. These are reviewed. Coagulation studies also in [facility] reviewed. The patient's COVID-19 screen was negative; however, we have just sent off a PCR, which is pending. ASSESSMENT AND PLAN: 1. Acute respiratory failure. The patient has significant work of breathing at this time. We will therefore keep him on BiPAP. If the patient's respiratory status improves later, then we can cut back BiPAP to while asleep and p.r.n. However, as noted below, I feel the patient needs a CPAP or BiPAP while asleep half-way. We will also continue to titrate oxygen. The patient's oxygen needs long-term will need to be evaluated prior to his discharge later. 2. Pulmonary infiltrates/pneumonia. We will keep him in a negative pressure room until his COVID PCR is back. Considering the recent hospitalization, I decided to add vancomycin. The patient is on Levaquin as well as Zosyn already. We will plan on checking vancomycin trough before every fourth dose for the duration that he is on vancomycin and we will attempt to keep his trough tightly within the range of 15-20. 3. Chronic obstructive pulmonary disease exacerbation. I further increased the dose of Solu-Medrol. We will continue with nebulized bronchodilators. 4. Hypersomnia/sleep disturbances/parasomnias/sleep walking. Will need a sleep study after he is discharged in-lab. Note that because of this reason, the use of non-benzodiazepine ROGER agonists such as Ambien is contraindicated in this patient. Benzodiazepines themselves are not contraindicated for this reason. However, are higher risk due to other comorbid conditions. 5. Recent acute upper gastrointestinal bleed secondary to a duodenal ulcer. Increased his proton pump inhibitor to b.i.d. 6. Deep venous thrombosis prophylaxis. The patient is currently on Lovenox. 7. Fluid and electrolytes. He did receive IV fluids in the Emergency Room. I did repeat labs this evening. His creatinine currently is normal at 0.8. We will watch and follow closely. 8. Hyperglycemia, on insulin sliding scale. The patient is critically ill at this time. Total time spent providing critical care to this patient today exceeds 40 minutes. <ELECTRONICALLY SIGNED> By: Peter Floyd MD 12/22/19 1740 [id number] [id number] Floyd MD /nt
[2019-12-22 21:25] VITALS: BP 110/70
[2019-12-23] VITALS: BP 124/73
[2019-12-23 04:12] VITALS: BP 113/74
[2019-12-23 08:00] VITALS: BP 111/79
[2019-12-23 11:54] LABS: ABSOLUTE LYMPHOCYTES 0.2 thou/uL (0.8-5.3); ABSOLUTE MONOCYTES 0.4 thou/uL (0.0-1.2); ABSOLUTE NEUTROPHILS 7.8 thou/uL (1.6-8.1); HEMATOCRIT 37.2 % (42.0-52.0); HEMOGLOBIN 12.5 gm/dL (14.0-18.0); LYMPHOCYTES 2.8 %; MCH 30.6 pg (26.0-34.0); MCHC 33.7 g/dL (28.0-37.0); MCV 90.7 fL (80.0-100.0); MONOCYTES 4.2 %; MPV 9.1 fl. (7.2-11.1); NUCLEATED RBCS 0 /100WBC; PLATELET COUNT* 188 thou/uL (150-400); RDW-CV 15.9 % (10.5-14.5); WBC 8.4 thou/uL (4.0-11.0)
[2019-12-23 12:23] LABS: ALBUMIN 2.2 g/dL (3.4-5.0); CALCIUM 8.8 mg/dL (8.5-10.1); CREATININE 0.8 mg/dL (0.6-1.3); MAGNESIUM 2.1 mg/dL (1.8-2.4); POTASSIUM 4.3 mmol/L (3.5-5.1); TOTAL BILIRUBIN 0.4 mg/dL (<0.1-1.0)
[2019-12-23 12:25] LABS: PREALBUMIN 9.9 mg/dL (18.0-35.7)
[2019-12-23 15:31] VITALS: BP 104/60
[2019-12-23 15:46] VITALS: BP 113/65
[2019-12-23 20:28] VITALS: BP 121/74
[2019-12-24] VITALS: BP 106/69
[2019-12-24 04:00] VITALS: BP 101/65
[2019-12-24 05:05] LABS: ABSOLUTE LYMPHOCYTES 0.4 thou/uL (0.8-5.3); ABSOLUTE MONOCYTES 0.4 thou/uL (0.0-1.2); ABSOLUTE NEUTROPHILS 6.4 thou/uL (1.6-8.1); BASOPHILS 0.1 %; HEMATOCRIT 34.4 % (42.0-52.0); HEMOGLOBIN 11.6 gm/dL (14.0-18.0); LYMPHOCYTES 5.3 %; MCH 30.4 pg (26.0-34.0); MCHC 33.6 g/dL (28.0-37.0); MCV 90.5 fL (80.0-100.0); MONOCYTES 5.3 %; MPV 8.9 fl. (7.2-11.1); NUCLEATED RBCS 0 /100WBC; PLATELET COUNT* 188 thou/uL (150-400); POLYS 89.3 %; RDW-CV 15.5 % (10.5-14.5); WBC 7.2 thou/uL (4.0-11.0)
[2019-12-24 05:20] LABS: CALCIUM 8.6 mg/dL (8.5-10.1); CREATININE 0.8 mg/dL (0.6-1.3); POTASSIUM 4.2 mmol/L (3.5-5.1); TOTAL BILIRUBIN 0.3 mg/dL (<0.1-1.0); TOTAL PROTEIN 5.9 g/dL (6.4-8.2)
[2019-12-24 08:00] VITALS: BP 128/94
[2019-12-24 14:47] VITALS: BP 115/58
[2019-12-24 18:43] VITALS: BP 134/67
[2019-12-24 20:00] VITALS: BP 122/78
[2019-12-25 00:30] VITALS: BP 125/76
[2019-12-25 05:03] VITALS: BP 97/68
[2019-12-25 08:00] VITALS: BP 133/73
[2019-12-25 12:56] VITALS: BP 110/72
[2019-12-25 16:05] VITALS: BP 137/79
[2019-12-25 20:00] VITALS: BP 113/58; BP 122/73
[2019-12-26] VITALS: BP 108/65
[2019-12-26 04:00] VITALS: BP 139/84
[2019-12-26 05:03] LABS: HEMATOCRIT 36.1 % (42.0-52.0); HEMOGLOBIN 11.9 gm/dL (14.0-18.0); MCH 29.9 pg (26.0-34.0); MCV 90.8 fL (80.0-100.0); MPV 8.9 fl. (7.2-11.1); NUCLEATED RBCS 0 /100WBC; PLATELET COUNT* 232 thou/uL (150-400); RBC 3.97 mil/uL (4.50-6.00); RDW-CV 15.8 % (10.5-14.5); WBC 6.3 thou/uL (4.0-11.0)
[2019-12-26 05:28] LABS: ALBUMIN 2.1 g/dL (3.4-5.0); CALCIUM 8.3 mg/dL (8.5-10.1); CREATININE 0.7 mg/dL (0.6-1.3); MAGNESIUM 2.3 mg/dL (1.8-2.4); POTASSIUM 4.3 mmol/L (3.5-5.1); TOTAL BILIRUBIN 0.3 mg/dL (<0.1-1.0)
[2019-12-26 05:47] LABS: ABSOLUTE LYMPHOCYTES 0.4 thou/uL (0.8-5.3); ABSOLUTE MONOCYTES 0.1 thou/uL (0.0-1.2); ABSOLUTE NEUTROPHILS 5.8 thou/uL (1.6-8.1); ANISOCYTOSIS 1+; PLATELET ESTIMATE ADEQUATE; POIKILOCYTOSIS 1+
[2019-12-26 08:00] VITALS: BP 118/70
[2019-12-26 12:09] VITALS: BP 127/74
[2019-12-26 16:33] VITALS: BP 111/79
[2019-12-27 00:05] VITALS: BP 109/61
[2019-12-27 04:00] VITALS: BP 127/73
[2019-12-27 08:00] VITALS: BP 112/76
[2019-12-27] MEDS ORDERED: PROTONIX40 M1 PO (11:29)
[2019-12-27] MEDS ORDERED: FLORASTOR250 MG PO (11:29)
[2019-12-27] MEDS ORDERED: LEVAQUIN 750 M750 MG PO (11:29)
[2019-12-27] MEDS ORDERED: PREDNISONE 10 M10 MG PO (11:29)
[2019-12-27 11:58] VITALS: BP 127/73
[2019-12-27 13:39] VITALS: BP 127/73
== END 2019-12-27 17:56 | disposition home health service (06) | DRG 871 ==
LOC: M.ERS 08:59 → M.2W 10:43 → M.TBA-ER 10:43 → M.2W 12:20
PROVIDERS: Internal Medicine Critical Care Medicine; Personal Emergency Response Attendant; ADMIT Internal Medicine; ATTEND Internal Medicine
PROC: 5A09357 Assistance with Respiratory Ventilation, Less than 24 Consecutive Hours, Continuous Positive Airway Pressure (ICD-10-PCS; principal; 2019-12-21)
PROC: 5A09357 Assistance with Respiratory Ventilation, Less than 24 Consecutive Hours, Continuous Positive Airway Pressure (ICD-10-PCS; 2019-12-22)
PROC: 5A09357 Assistance with Respiratory Ventilation, Less than 24 Consecutive Hours, Continuous Positive Airway Pressure (ICD-10-PCS; 2019-12-23)
PROC: 5A09357 Assistance with Respiratory Ventilation, Less than 24 Consecutive Hours, Continuous Positive Airway Pressure (ICD-10-PCS; 2019-12-24)
PROC: 5A09357 Assistance with Respiratory Ventilation, Less than 24 Consecutive Hours, Continuous Positive Airway Pressure (ICD-10-PCS; 2019-12-25)
PROC: 5A09357 Assistance with Respiratory Ventilation, Less than 24 Consecutive Hours, Continuous Positive Airway Pressure (ICD-10-PCS; 2019-12-26)
PROC: 5A09357 Assistance with Respiratory Ventilation, Less than 24 Consecutive Hours, Continuous Positive Airway Pressure (ICD-10-PCS; 2019-12-27)
DX: A41.9 Sepsis, unspecified organism (principal); J96.00 Acute respiratory failure, unspecified whether with hypoxia or hypercapnia; J18.9 Pneumonia, unspecified organism; J44.0 Chronic obstructive pulmonary disease with (acute) lower respiratory infection; J44.1 Chronic obstructive pulmonary disease with (acute) exacerbation; G47.10 Hypersomnia, unspecified; I49.8 Other specified cardiac arrhythmias; R73.9 Hyperglycemia, unspecified; K26.9 Duodenal ulcer, unspecified as acute or chronic, without hemorrhage or perforation; I95.9 Hypotension, unspecified; Z20.828 Contact with and (suspected) exposure to other viral communicable diseases; Z90.49 Acquired absence of other specified parts of digestive tract; Z79.84 Long term (current) use of oral hypoglycemic drugs; Z88.8 Allergy status to other drugs, medicaments and biological substances; Z87.891 Personal history of nicotine dependence; Z99.81 Dependence on supplemental oxygen

== ENCOUNTER 2019-12-30 16:17 | Inpatient (IN) | payer OTHER, MEDICAID ==
[~2019-12-30] VITALS: Ht 182.9 cm; Wt 113.6 kg
--- NOTE | ~2019-12-30 | CON ---
[address] [address] CONSULTATION Name: KEN LAZARO Room: [address] IN ..#: [id number] Admission: 12/30/19 Attend Phys: Rikki Oro Discharge: Date of : 49 Report #: [id number] THIS REPORT FOR: //name// cc: Aftab La Adam J DO ~ THIS REPORT FOR: //name// CC: Aftab Solorio DATE OF SERVICE: 01/03/2020 REFERRING PHYSICIAN: Christopher Solorio DO INDICATION FOR CONSULTATION: Acute hypoxemic respiratory failure, refractory to BiPAP. HISTORY OF PRESENT ILLNESS: The patient is a 74-year-old gentleman with past medical history as mentioned below. The patient does have COPD. Based on clinical history, he appears to have obstructive sleep apnea as well; however, he currently is not on positive airway pressure therapy at home. He has an extensive history of smoking and discontinued about 4 years ago. The patient was recently admitted to this hospital towards the end of November and I did see this patient in conjunction with Dr. Hart. At that time, the patient previous to this also had another admission to this hospital fairly recently, in which he had an upper GI bleed, was found to have melena and upon EGD, had a duodenal ulcer. During the last hospitalization. The patient was acutely short of breath, was initially BiPAP dependent, in fact remained on BiPAP until the end of admission. 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 We did treat him with Levaquin during the previous hospitalization. Initially, he also was on vancomycin, which was subsequently discontinued when his nasal swab for MRSA came back negative. The patient was screened for COVID-19 by both antigen as well as PCR, and these were both negative. The patient was ordered Levaquin upon discharge and he reports that he was taking it regularly; however, a few days later, he says that he had increase in shortness of breath, which is the reason that he came back to this hospital. The patient was discharged on oxygen upon last discharge. The patient reported that he had also had an increase in cough, but not much increase in sputum production, no chest pain, mild swelling of lower extremities only. No calf pain. He did not report upper respiratory complaints. No fever or chills and no vomiting. Since admission again, the patient has been [place] [address] CONSULTATION Name: KEN LAZARO Room: [address] IN [facility].#: [id number] Admission: 12/30/19 Attend Phys: Rikki Oro Discharge: Date of : 49 Report #: [id number] with azithromycin, cefdinir, as well as Levaquin. He also has been on high dose corticosteroids. The patient, however, still does remain BiPAP dependent for the night as well as part of the day. He does maintain O2 saturation around 4 liters oxygen when he is off the BiPAP; however, due to shortness of breath, he is in fact wearing the BiPAP for most of the day as well. I asked him 12 other questions for review of systems. The patient answered to the negative except as mentioned above. This is with the exception that the patient does have a history of parasomnias and has had sleep walking in the past. PAST MEDICAL HISTORY: COPD, on 3 liters oxygen at home. There is a clinical history consistent with obstructive sleep apnea. He has not previously had a sleep study. Parasomnias/sleepwalking, recent upper gastrointestinal bleed with melena secondary to a duodenal ulcer. Another recent admission with syncope. There is a previous history of rhabdomyolysis; however, he only had mild elevation in creatinine with rhabdomyolysis to 1.4. His baseline creatinine is 1.0. Hypertension, appendectomy, left foot surgery, right knee surgery, right finger surgery, lymph node removed from the abdomen several years ago. I do not have details available. The patient's last available echocardiogram is from earlier this year and shows a left ventricular ejection fraction of 55-60% with tricuspid valve been reported to be unremarkable. SOCIAL HISTORY: Has an extensive history of smoking. I am unable to quantify exactly when the patient said that he used to smoke regularly for several decades and discontinued about 4 years ago. There is no known history of heavy alcohol use or illegal drug use. CURRENT MEDICATIONS: Listed in [employer] reviewed. HOME MEDICATIONS: List also in [employer] reviewed. ALLERGIES: No known drug allergies. FAMILY HISTORY: There is a history of coronary artery disease in the family. The patient's brother had a heart attack. PHYSICAL EXAMINATION: GENERAL: He is alert, awake and oriented; however, had difficulty communicating due to the fact that he was wearing a BiPAP. VITAL SIGNS: Has a pulse of 65 and a blood pressure of 103/64 and a BiPAP of 12/6 with 35% FiO2. He is saturating in the high 90s. His respiratory rate is 17. He is afebrile with a temperature of 36.7. He does not appear to be in any distress. HEENT: Head is normocephalic and atraumatic. Pupils are equal and reactive. There is no throat erythema. Airway is narrow. Mallampati 4. Modified Mallampati is also 4. NECK: Does not show raised JVP, asymmetry, mass or lymph nodes. [place] [id number] CONSULTATION Name: KEN LAZARO Room: [address] IN [facility].#: [id number] Admission: 12/30/19 Attend Phys: Rikki Oro Discharge: Date of : 49 Report #: [id number] CHEST: Symmetrical expansion on inspection and palpation. On auscultation, breath sounds are bilaterally decreased, but equal. I do not hear any added sounds. HEART: Regular. There is no murmur. ABDOMEN: Soft and nontender. EXTREMITIES: Lower extremities show trace edema bilaterally. There is no calf tenderness. SKIN: Dry and intact. NEUROLOGICAL: Moves all extremities bilaterally equally and spontaneously with no focal deficit identified. LABORATORY DATA: The patient's chest x-ray from this admission are reviewed and compared with the patient's previous chest x-rays, there are extensive infiltrates in the right lung; however, these appear to be improving. There is some atelectasis as well. The patient's CBC as well as chemistries are in [facility]. These are reviewed and are normal. BUN and creatinine are noted. Albumin level decreased to 1.9 noted. Hyperglycemia noted; however, the patient has been on Solu-Medrol. Arterial blood gases, which show a pO2 of 72 consistent with hypoxemia, requiring oxygen in [facility] reviewed. The patient's pCO2 have been normal. Coagulation studies show a D-dimer elevated to 3.66. Urinalysis is in [facility] reviewed. He again did have a COVID-19 antigen performed and this is negative. ASSESSMENT AND PLAN: 1. Ktzlh-he-smyyswt hypoxemic respiratory failure. In the background, the patient does appear to have significant COPD as well as obstructive sleep apnea. He also has pneumonia in the right lung, which is fairly extensive. However, this was already being adequately treated with Levaquin at home. Therefore, the etiology of the patient's deterioration now needs to be defined further. There certainly does appear to be a component of bronchospasm. Considering that his D-dimer is elevated, I would like to go ahead and perform a CTA chest as well and evaluate for thromboembolism. The patient also does appear to have mild fluid overload. For now, we will continue with BiPAP as currently prescribed. 2. Chronic obstructive pulmonary disease exacerbation. I increased DuoNeb to q.4 hours. We will decrease Solu-Medrol to 62.5 q.8 hours and follow. Note that the patient is on long-term oxygen at home. 3. Pulmonary infiltrates/pneumonia. We would discontinue Zithromax and also discontinue Levaquin. The patient remained on cefdinir. We will reevaluate once the patient's CT chest is performed. 4. Edema/fluid overload. The patient's BUN and creatinine are normal. The patient's blood pressure is on the lower side. We potentially could give him some Lasix either with midodrine or albumin, but I do not want to diurese him at the same time as giving him IV dye and, therefore, I decided to hold off for now, we will reevaluate tomorrow. We will also do venous Dopplers. 5. Obstructive sleep apnea/parasomnias. I will see if we can arrange a sleep study at the earliest after his discharge, so that he could be set up with a [address] [address] CONSULTATION Name: KEN LAZARO Room: [address] IN [place]#: [id number] Admission: 12/30/19 Attend Phys: Rikki Oro Discharge: Date of : 49 Report #: [id number] CPAP or BiPAP at home. 6. Deep vein thrombosis prophylaxis, I will review further. He has had a recent GI bleed, but he did tolerate prophylactic dose Lovenox to my recollection during the last admission. Therefore, I am inclined to order the same. Otherwise, we will recommend SCDs, provided the venous Dopplers are negative. 6. Recent upper gastrointestinal bleed secondary to duodenal ulcer. The patient remains on a proton pump inhibitor b.i.d. Thanks for this consultation. By: 1249 [id number] Floyd MD /nt
[~2019-12-30 16:17] MED LIST changes: +FLORASTOR250 MG PO; +LEVAQUIN 750 M750 MG PO; +PREDNISONE 10 M10 MG PO; +PROTONIX40 M1 PO
[2019-12-30 16:51] VITALS: BP 117/80
[2019-12-30 17:23] LABS: HEMATOCRIT 41.2 % (42.0-52.0); HEMOGLOBIN 13.8 gm/dL (14.0-18.0); MCH 29.9 pg (26.0-34.0); MCHC 33.4 g/dL (28.0-37.0); MCV 89.6 fL (80.0-100.0); MPV 8.8 fl. (7.2-11.1); NUCLEATED RBCS 0 /100WBC; PLATELET COUNT* 301 thou/uL (150-400); RDW-CV 16.5 % (10.5-14.5); WBC 19.4 thou/uL (4.0-11.0)
[2019-12-30 17:31] LABS: INR 1.1; PROTIME 11.2 Seconds (9.20-11.50)
[2019-12-30 17:33] LABS: CALCIUM 8.7 mg/dL (8.5-10.1); POTASSIUM 4.1 mmol/L (3.5-5.1)
[2019-12-30 17:37] LABS: ALBUMIN 2.3 g/dL (3.4-5.0); TOTAL BILIRUBIN 0.6 mg/dL (<0.1-1.0); TOTAL PROTEIN 6.6 g/dL (6.4-8.2)
[2019-12-30 18:05] LABS: BE 2.6 mmol/L (-2 to +3); PCO2 35.3 mmHg (35.0-45.0); PO2 72.6 mmHg (75.0-100.0); pH 7.481 (7.340-7.450)
[2019-12-30 18:05] LABS: ABSOLUTE LYMPHOCYTES 0.6 thou/uL (0.8-5.3); ABSOLUTE MONOCYTES 0.2 thou/uL (0.0-1.2); ABSOLUTE NEUTROPHILS 18.6 thou/uL (1.6-8.1); METAMYELOCYTES 1 %; PLATELET ESTIMATE ADEQUATE
[2019-12-30 18:06] LABS: ANISOCYTOSIS 1+
[2019-12-30 21:41] VITALS: BP 138/73
[2019-12-30 22:00] VITALS: BP 144/84
[2019-12-30 22:34] VITALS: BP 144/84
[2019-12-31] VITALS (7 sets, daily range): BP systolic 103–121; BP diastolic 62–75
--- NOTE | 2019-12-31 05:51 | NUR ---
VITALS STABLE, AFEBRILE. PT SLEPT THROUGH THE NIGHT. SOB WITH EXERTION, ABLE TO GET UP TO USE URINAL WITH SOME DISCOMFORT. REMAINS ON 4L O2 PER NC. IRREGULAR RHYTHM FOR A SHORT WHILE RIGHT AFTER HE GOT TO THE UNIT. EKG ORDERED PER PROTOCOL, BUT PATIENT CONVERTED SHORTLY AFTER AND BEFORE EKG WAS PERFORMED. NSR/SINUS ARRHYTHMIA WITH RATES IN 70s-80s AT THE MOMENT. PATIENT DENIES ANY PAIN. OTHERWISE UNEVENTFUL NIGHT. WAS ABLE TO EAT A SANDWICH WITH NO NAUSEA. CALL LIGHT WITHIN REACH. WILL CONTINUE MONITORING.
[2019-12-31 11:05] LABS: CALCIUM 7.6 mg/dL (8.5-10.1); CREATININE 0.8 mg/dL (0.6-1.3); POTASSIUM 3.7 mmol/L (3.5-5.1)
[2019-12-31 17:42] LABS: BE -1.7 mmol/L (-2 to +3); PCO2 41.3 mmHg (35.0-45.0); pH 7.372 (7.340-7.450)
[2019-12-31 17:44] LABS: PO2 149.2 mmHg (75.0-100.0)
--- NOTE | 2019-12-31 19:51 | NUR ---
Pt on and off BIPAP throughout the day. At 1530, pt found on side of bed SOA. BIPAP mask was apart and on floor, pt incontinent of urine. Pt appeared lethargic and stated he felt "awful." 4L O2 placed per NC. SaO2 88-89, remains SOA. BIPAP placed which brought SaO2 up to 96%. Encouraged pt to lie down in bed, changed linens and gown. Pt diaphoretic throughout the day and tachypneic with RR upper 20s to low 30s. VSS otherwise, afebrile. Dr. Solorio paged, informed of pt's status; orders received. Later, pt felt better and was up to side of bed and off BIPAP to eat. Dr. Solorio states he wants patient on BIPAP except to eat and for brief breaks. Will continue to monitor.
[2020-01-01] VITALS: BP 118/63
--- NOTE | 2020-01-01 03:58 | NUR ---
PATIENT REMAINS ON BIPAP THROUGHOUT SHIFT, EXCEPT TO TAKE MEDICATION AND SIPS OF WATER. O2 SATURATION MAINTAINED. PATIENT DENIES PAIN AND DISCOMFORT. STATES HE IS FEELING SLIGHTLY BETTER. CALL LIGHT WITHIN REACH
[2020-01-01 04:00] VITALS: BP 141/87
[2020-01-01 05:05] LABS: ABSOLUTE LYMPHOCYTES 0.3 thou/uL (0.8-5.3); ABSOLUTE MONOCYTES 0.1 thou/uL (0.0-1.2); ABSOLUTE NEUTROPHILS 6.7 thou/uL (1.6-8.1); BASOPHILS 0.1 %; HEMATOCRIT 34.9 % (42.0-52.0); LYMPHOCYTES 3.7 %; MCH 30.2 pg (26.0-34.0); MCHC 33.6 g/dL (28.0-37.0); MCV 89.8 fL (80.0-100.0); MONOCYTES 1.2 %; MPV 8.9 fl. (7.2-11.1); NUCLEATED RBCS 0 /100WBC; PLATELET COUNT* 232 thou/uL (150-400); RBC 3.88 mil/uL (4.50-6.00); WBC 7.1 thou/uL (4.0-11.0)
[2020-01-01 05:19] LABS: CALCIUM 8.1 mg/dL (8.5-10.1); CREATININE 0.7 mg/dL (0.6-1.3); POTASSIUM 4.4 mmol/L (3.5-5.1)
[2020-01-01 05:23] LABS: HEMOGLOBIN 11.7 gm/dL (14.0-18.0)
[2020-01-01 06:48] LABS: URINE BILIRUBIN NEGATIVE (Negative); URINE BLOOD NEGATIVE (Negative); URINE CLARITY CLEAR; URINE COLOR YELLOW; URINE GLUCOSE-RANDOM 1+ (Negative); URINE KETONES TRACE (Negative); URINE LEUKOCYTES NEGATIVE (Negative); URINE NITRITE NEGATIVE (Negative); URINE PROTEIN NEGATIVE (Negative); URINE SPECIFIC GRAVITY 1.025 (1.005-1.030); URINE UROBILINOGEN 0.2 E.U./dl (0.2-1.0)
[2020-01-01 08:00] VITALS: BP 97/49
--- NOTE | 2020-01-01 09:51 | EKG ---
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 : 1945 Requested By: Saul Fitzpatrick Order Number: [id number] MD: Wong Guerrero Measurements Intervals [place] Rate: 96 P: 65 IN: 168 QRS: 59 QRSD: 111 T: 17 QT: 327 QTc: 414 Interpretive Statements Sinus rhythm artifact noted poor r wave progression Atrial premature complex Low voltage, extremity leads Compared to ECG 12/21/2019 13:29:43 no change Electronically Signed On 01-01-2020 9:51:34 CDT by Wong Guerrero [email or web address] <ELECTRONICALLY SIGNED> By: Wong Guerrero MD, [facility] 01/01/20 0951 1656 1656 Wong Guerrero MD, [facility] /EPI
[2020-01-01 12:34] VITALS: BP 107/62
--- NOTE | 2020-01-01 16:06 | NUR ---
Pt dc from this hospital last week. Pt resides at home alone. Normally independnet, Pt has family in the area, but reports that they are minimally supportive. Pt wears home o2, has an [employer] and had a concentrator delivered on 12/26, o2 provided through [employer]. Pt is current with [facility] and plans to resume at dc. Pt on bipap PRN. Goal is home at dc. Following.
[2020-01-01 16:25] VITALS: BP 100/68
--- NOTE | 2020-01-01 18:52 | NUR ---
ASSUMED PT CARE AT 0730. ASSESSMENT COMPLETED CHARTED. ABLE TO MAKE NEEDS KNOWN. UP WITH SBA TO BATHROOM. BIPAP WORN WHEN NOT EATING, DRINKING, OR USING THE BATHROOM. NO C/O PAIN OR DISCOMFORT OTHER THAN SOA. PT RESTING IN BED AT THIS TIME. WILL CONTINUE TO MONITOR.
[2020-01-01 19:50] VITALS: BP 111/73
[2020-01-02] VITALS: BP 151/70
[2020-01-02 04:00] VITALS: BP 132/74; BP 143/89
--- NOTE | 2020-01-02 06:48 | NUR ---
PATIENT PROGRESSING TOWARDS GOALS: PATIENT REMAINS ON BIPAP MOST OF SHIFT. PATIENT DENIES PAIN. VOIDING PER URINAL. RESPIRATORY STATUS IMPROVING, PATIENT HAS LESS LABORED BREATHING AND RR IMPROVING. CALL LIGHT WITHIN REACH
[2020-01-02 08:00] VITALS: BP 161/62
[2020-01-02 10:56] LABS: BE 1.4 mmol/L (-2 to +3); PCO2 40.1 mmHg (35.0-45.0); PO2 83.9 mmHg (75.0-100.0); pH 7.427 (7.340-7.450)
[2020-01-02 13:10] VITALS: BP 117/58
--- NOTE | 2020-01-02 15:55 | NUR ---
Pt on bipap. Anticipate dc in a few days.
[2020-01-02 17:12] VITALS: BP 128/73
[2020-01-02 20:10] VITALS: BP 116/72
[2020-01-03 05:22] VITALS: BP 112/67
[2020-01-03 06:17] LABS: HEMATOCRIT 33.1 % (42.0-52.0); HEMOGLOBIN 11.3 gm/dL (14.0-18.0); MCH 30.5 pg (26.0-34.0); MCHC 34.1 g/dL (28.0-37.0); MCV 89.5 fL (80.0-100.0); NUCLEATED RBCS 0 /100WBC; PLATELET COUNT* 271 thou/uL (150-400); RDW-CV 16.4 % (10.5-14.5); WBC 7.1 thou/uL (4.0-11.0)
--- NOTE | 2020-01-03 06:50 | NUR ---
PATIENT PROGRESSING TOWARDS GOALS: COMPLIANT WITH BIPAP USE THIS SHIFT. PATIENT DENIES PAIN AND DISCOMFORT. UP WITH STANDBY ASSIST. CALL LIGHT WITHIN REACH
[2020-01-03 06:57] LABS: ALBUMIN 1.9 g/dL (3.4-5.0); CALCIUM 7.9 mg/dL (8.5-10.1); CREATININE 0.6 mg/dL (0.6-1.3); POTASSIUM 4.4 mmol/L (3.5-5.1); TOTAL BILIRUBIN 0.3 mg/dL (<0.1-1.0); TOTAL PROTEIN 5.3 g/dL (6.4-8.2)
[2020-01-03 07:16] LABS: ABSOLUTE LYMPHOCYTES 0.3 thou/uL (0.8-5.3); ABSOLUTE MONOCYTES 0.2 thou/uL (0.0-1.2); ABSOLUTE NEUTROPHILS 6.6 thou/uL (1.6-8.1)
[2020-01-03 07:17] LABS: MICROCYTES 1+; PLATELET ESTIMATE ADEQUATE
[2020-01-03 08:00] VITALS: BP 92/56
[2020-01-03 12:19] VITALS: BP 103/64
--- NOTE | 2020-01-03 13:08 | NUR ---
Remains on bipap PRN. Pulm consulted regarding possible need for trilogy/bipap. Following.
[2020-01-03 16:30] VITALS: BP 127/69
[2020-01-03 19:40] VITALS: BP 111/63
[2020-01-04] VITALS: BP 102/60
[2020-01-04 04:00] VITALS: BP 114/69
--- NOTE | 2020-01-04 05:29 | NUR ---
PT ALERT AND ORIENTED. VSS ON 4L NC. BIPAP @ HS AND PRN. MEDS GIVEN ORDERED. SR ON THE MONITOR. PT SLEPT WELL THIS. SOMETIMES COMES OFF RUDE. FALL PRECAUTION IN PLACE. CALL LIGHT WITHIN REACH. HOURLY ROUNDINGS MADE. WILL CONTINUE TO MONITOR.
--- NOTE | 2020-01-04 07:20 | NUR ---
CHANGE OF SHIFT, BEDSIDE REPORT GIVEN PATIENT SEEN AT BEDSIDE, IN BED ASLEEP ASSUMED APTIENT CARE
[2020-01-04 08:00] VITALS: BP 118/72
[2020-01-04 12:00] VITALS: BP 131/62
[2020-01-04 12:59] LABS: CALCIUM 8.2 mg/dL (8.5-10.1); CREATININE 0.7 mg/dL (0.6-1.3); POTASSIUM 4.7 mmol/L (3.5-5.1)
--- NOTE | 2020-01-04 14:43 | NUR ---
Per pulm Pt could benefit from a sleep study. Pt may be medically stable to dc tomorrow, CM to try and arrange a sleep study for Pt post this hospital stay.
[2020-01-04 16:00] VITALS: BP 112/69
[2020-01-04 19:30] VITALS: BP 114/59
[2020-01-05] VITALS (7 sets, daily range): BP systolic 104–144; BP diastolic 57–91
[2020-01-05 04:59] LABS: ABSOLUTE LYMPHOCYTES 0.2 thou/uL (0.8-5.3); ABSOLUTE MONOCYTES 0.2 thou/uL (0.0-1.2); ABSOLUTE NEUTROPHILS 5.6 thou/uL (1.6-8.1); BASOPHILS 0.3 %; HEMATOCRIT 34.3 % (42.0-52.0); HEMOGLOBIN 11.5 gm/dL (14.0-18.0); LYMPHOCYTES 3.1 %; MCH 30.2 pg (26.0-34.0); MCHC 33.4 g/dL (28.0-37.0); MCV 90.3 fL (80.0-100.0); MONOCYTES 3.6 %; MPV 8.7 fl. (7.2-11.1); NUCLEATED RBCS 0 /100WBC; PLATELET COUNT* 246 thou/uL (150-400); RDW-CV 16.1 % (10.5-14.5); WBC 6.1 thou/uL (4.0-11.0)
[2020-01-05 05:07] LABS: CALCIUM 7.9 mg/dL (8.5-10.1); CREATININE 0.7 mg/dL (0.6-1.3); POTASSIUM 4.4 mmol/L (3.5-5.1)
--- NOTE | 2020-01-05 07:11 | NUR ---
PT ALERT AND ORIENTED. VSS ON 4L. BIPAP @ HS. PT TOOK MEDS WHOLE. DENIES PAIN. FALL PRECAUTION IN PLACE. PT REPORTED THIS AM THAT HE'S HAD SORETHROAT X2 SINCE THE LAST 2 NIGHTS OF USING BIPAP. PT VOICED THAT HE WOULDN'T WANT BIPAP @ HOME IF THIS CONTINUES. WILL PASS ON TO DAY RN. WILL CONTINUE TO MONITOR.
--- NOTE | 2020-01-05 11:03 | NUR ---
ROLA spoke with outpt scheduling, it could take up to 3-5 business days to receive auth for sleep study, then auth would need to be obtained to dispense the bipap. CNO to try and determine alternate options to get the sleep study completed quicker. Updated Dr. Aviles.
--- NOTE | 2020-01-05 18:30 | NUR ---
RECEIVED REPORT. ASSUMED CARE OF PT AROUND 0730. PT A&O X4. AM ASSESSMENT AND VITALS COMPLETED CHARTED. MEDS PER EMAR. [employer] TE[employer]ER IN PLACE. PLAN IS FOR PT TO HAVE SLEEP STUDY WEDNESDAY NIGHT HERE - WILL DC STRAIGHT TO THE STUDY ONCE ARRANGED. PULMONARY IN TO SEE PT TODAY - FELT THAT PT WAS NOT STABLE FOR DC TODAY. PT ABLE TO MAKE NEEDS KNOWN. PT CURRENTLY RESTING IN BED. CALL LIGHT IS WITHIN REACH. HOURLY ROUNDING PERFORMED. FALL PRECAUTIONS IN PLACE.
[2020-01-06] VITALS: BP 116/53
[2020-01-06 04:00] VITALS: BP 128/74
[2020-01-06 05:59] LABS: HEMATOCRIT 36.5 % (42.0-52.0); HEMOGLOBIN 12.2 gm/dL (14.0-18.0); MCHC 33.4 g/dL (28.0-37.0); MCV 89.7 fL (80.0-100.0); MPV 8.3 fl. (7.2-11.1); NUCLEATED RBCS 0 /100WBC; PLATELET COUNT* 265 thou/uL (150-400); RBC 4.07 mil/uL (4.50-6.00); RDW-CV 16.1 % (10.5-14.5); WBC 6.9 thou/uL (4.0-11.0)
[2020-01-06 06:09] LABS: CALCIUM 8.4 mg/dL (8.5-10.1); CREATININE 0.7 mg/dL (0.6-1.3); MAGNESIUM 2.1 mg/dL (1.8-2.4)
[2020-01-06 06:42] LABS: ABSOLUTE LYMPHOCYTES 0.2 thou/uL (0.8-5.3); ABSOLUTE MONOCYTES 0.7 thou/uL (0.0-1.2); MICROCYTES 1+; PLATELET ESTIMATE ADEQUATE
--- NOTE | 2020-01-06 06:50 | NUR ---
ASSUMED PT CARE AT 1910. NURSING ASSESSMENT COMPLETED AT START OF SHIFT. PT ON 4L O2 NC THIS SHIFT. PT COMPLIANT WITH BIPAP OVERNIGHT. HOURLY ROUNDING COMPLETED. CALL LIGHT WITHIN REACH. NEGATIVE SEPSIS SCREENING.
[2020-01-06 08:00] VITALS: BP 121/74
[2020-01-06 12:36] VITALS: BP 116/60
[2020-01-06 12:37] VITALS: BP 116/60
--- NOTE | 2020-01-06 15:56 | NUR ---
ASSUMED PT CARE AT 0730, PT AOX4, NO C/O PAIN OR SHORTNESS OF BREATH INITIALLY BUT HAD INCREASING SHORTNESS OF BREATH THIS AFTERNOON, RT CONSULTED AND PUT PT BACK ON BIPAP, SHORTNESS OF BREATH RESOLVED. PT GOAL IS TO INCREASE ACTIVITY AND REMAIN FREE FROM FURTHER SHORTNESS OF BREATH. AM ASSESSMENT CHARTED, MEDS PER JUL, HOURLY ROUNDING OBSERVED, FALL PRECAUTIONS IN PLACE, CALL LIGHT W/IN REACH, WILL CONTINUE POC.
[2020-01-06 16:32] VITALS: BP 118/72
[2020-01-07] VITALS: BP 103/52
[2020-01-07 04:00] VITALS: BP 115/72
--- NOTE | 2020-01-07 05:56 | NUR ---
ASSUMED PT CARE AT 1910. SR/SB WITH OCCASIONAL PVC'S THIS SHIFT. NO C/O SOB. COMPLIANT WITH BIPAP USE. PT HOPEFUL TO D/C HOME IN THE NEXT COUPLE OF DAYS. HOURLY ROUNDING COMPLETED. CALL LIGHT WITHIN REACH.
[2020-01-07 08:00] VITALS: BP 109/73
[2020-01-07 12:00] VITALS: BP 97/67
--- NOTE | 2020-01-07 15:56 | NUR ---
ASSUMED PT CARE AT 0730, PT AOX4 BUT AGITATED ABOUT HAVING TO USE BIPAP AT NIGHT. PT STATES BIPAP MAKES HIS THROAT DRY AND SORE AND IS REFUSING TO WEAR IT. DR BERMUDEZ WORKED W/ PT THIS MORNING AND ENCOURAGED HIM TO TRY TO USE BIPAP AGAIN W/ HUMIDIFIER, SPOKE W/ RT WHO STATES WE DO NOT HAVE HUMIDIFYING OPTION FOR BIPAP AT THIS FACILITY. PT STATED HE DIDN'T WANT TO STAY HERE IF HE HAD TO WEAR BIPAP. DR BERMUDEZ APPROVED PT TO BE DC'D EITHER TODAY OR TOMORROW. PT HAS NO C/O PAIN OR SHORTNESS OF BREATH, STILL ON 4L NC WHICH HE WEARS AT HOME WELL. PT IS TO FOLLOW UP HERE TOMORROW FOR A OUTPT SLEEP STUDY, I ASKED DR VALLADARES IF WE COULD DC PT TODAY SINCE HE WAS REFUSING BIPAP AND HAS TO BE OUTPT TO DO SLEEP STUDY, DR VALLADARES SAID THAT SINCE DR. BERMUDEZ WAS OKAY W/ DC'ING PT TODAY THAT WE CAN DC HIM. DC ORDERS RECEIVED. DC INSTRUCTIONS, CARE NOTES, SCRIPTS SENT TO PT PHARMACY AND F/U APPTS GIVEN TO PT. PT COMMUNICATES UNDERSTANDING OF DC TEACHING. AM ASSMESSMENT CHARTED, MEDS PER MAR, HOURLY ROUNDING OBSERVED, FALL PRECAUTIONS IN PLACE, CALL LIGHT W/IN REACH, PT DC'D BY WC W/ ALL PERSONAL BELONGINGS AND PAPERWORK W/ NURSING STAFF TO BROTHER'S PERSONAL VEHICLE AT APPROX 1550.
== END 2020-01-07 15:55 | disposition home health service (06) | DRG 177 ==
LOC: M.ERS 16:17 → M.TBA-ER 18:16 → M.2W 18:16
PROVIDERS: Internal Medicine Critical Care Medicine; Physician Assistant; ADMIT Internal Medicine; ATTEND Internal Medicine
PROC: 5A09357 Assistance with Respiratory Ventilation, Less than 24 Consecutive Hours, Continuous Positive Airway Pressure (ICD-10-PCS; principal; 2019-12-31)
PROC: 5A09357 Assistance with Respiratory Ventilation, Less than 24 Consecutive Hours, Continuous Positive Airway Pressure (ICD-10-PCS; 2020-01-01)
PROC: 5A09357 Assistance with Respiratory Ventilation, Less than 24 Consecutive Hours, Continuous Positive Airway Pressure (ICD-10-PCS; 2020-01-02)
PROC: 5A09357 Assistance with Respiratory Ventilation, Less than 24 Consecutive Hours, Continuous Positive Airway Pressure (ICD-10-PCS; 2020-01-03)
PROC: 5A09357 Assistance with Respiratory Ventilation, Less than 24 Consecutive Hours, Continuous Positive Airway Pressure (ICD-10-PCS; 2020-01-04)
PROC: 5A09357 Assistance with Respiratory Ventilation, Less than 24 Consecutive Hours, Continuous Positive Airway Pressure (ICD-10-PCS; 2020-01-05)
PROC: 5A09357 Assistance with Respiratory Ventilation, Less than 24 Consecutive Hours, Continuous Positive Airway Pressure (ICD-10-PCS; 2020-01-06)
PROC: 5A09357 Assistance with Respiratory Ventilation, Less than 24 Consecutive Hours, Continuous Positive Airway Pressure (ICD-10-PCS; 2020-01-07)
DX: J15.6 Pneumonia due to other Gram-negative bacteria (principal); J96.21 Acute and chronic respiratory failure with hypoxia; J44.0 Chronic obstructive pulmonary disease with (acute) lower respiratory infection; J44.1 Chronic obstructive pulmonary disease with (acute) exacerbation; E11.65 Type 2 diabetes mellitus with hyperglycemia; G47.33 Obstructive sleep apnea (adult) (pediatric); E87.70 Fluid overload, unspecified; T38.0X5A Adverse effect of glucocorticoids and synthetic analogues, initial encounter; G47.50 Parasomnia, unspecified; Z20.828 Contact with and (suspected) exposure to other viral communicable diseases; Y92.89 Other specified places as the place of occurrence of the external cause; Z90.49 Acquired absence of other specified parts of digestive tract; Z87.891 Personal history of nicotine dependence; Z99.81 Dependence on supplemental oxygen; Z79.84 Long term (current) use of oral hypoglycemic drugs; Z79.899 Other long term (current) drug therapy; Z88.8 Allergy status to other drugs, medicaments and biological substances

== ENCOUNTER → 2020-01-17 | Outpatient (CLI) | payer OTHER, MEDICAID ==
--- NOTE | 2020-01-30 08:00 | SLEEP ---
[address] [address] SLEEP STUDY REPORT Name: KEN LAZARO Room: [facility]#: [id number] Admission: 01/17/20 Attend Phys: Aftab La DO Discharge: Date of : 49 Report #: [id number] THIS REPORT FOR: //name// CC: Aftab La This study has been reviewed in its entirety by a board certified sleep specialist DATE OF SERVICE: 01/17/2020 SLEEP STUDY INDICATION FOR SLEEP STUDY: Chronic hypoxemic respiratory failure with excessive daytime sleepiness. INTERPRETATION: Total duration of the study is 412 minutes. Out of which, he was asleep for only 90 minutes with an overall sleep efficiency severely decreased to only 21.7%. Sleep onset occurred around 50 minutes after lying down in bed and REM onset was not observed during the sleep study. N1 sleep duration was markedly elevated to 52% and therefore the patient's sleep was light, N2 sleep duration was 27%, N3 duration was 21%. Mean heart rate during the sleep study was 87. Periodic limb movement index is normal at 2.7. There is severe sleep fragmentation observed with an arousal index markedly elevated to 70. When the patient was asleep, we did record multiple sleep related respiratory events, there were 28 obstructive apneas in addition to 7 hypopneas and 33 respiratory effort related arousals recorded. The patient's apnea-hypopnea index was elevated to 24.8 with a respiratory disturbance index elevated to 46.9. The patient usually wears 3 liters of oxygen while asleep. The sleep study was started with [address]. Once the patient was asleep, the patient's oxygen was decreased to room air, where I am looking at the pulse oximetry waveform, there is a clear drop in the O2 saturation at this time. The patient then also woke up complaining that his oxygen was not working. The patient was subsequently placed on 1 liter of oxygen. Overall, the patient is noted to have an O2 saturation less than 90% for 5.4 minutes during the sleep study; however, it is noted that for most of the sleep study, the patient is on oxygen. I would expect him to have significant hypoxemia, if he was to remain on room air throughout the sleep study. IMPRESSION: 1. Obstructive sleep apnea with an apnea-hypopnea index of 24.8 and a respiratory disturbance index of 46.9 with nocturnal hypoxemia as described above. The patient is on oxygen for most of the sleep study. He therefore likely has more significant nocturnal hypoxemia. 2. There is severe reduction in sleep efficiency to only 21.7%, which severely limits evaluation [place] [address] SLEEP STUDY REPORT Name: KEN LAZARO [id number] Admission: 01/17/20 Attend Phys: Aftab La DO Discharge: Date of : 49 Report #: [id number] RECOMMENDATIONS: 1. I recommend proceeding to a repeat sleep study for positive airway pressure titration considering that the patient has a history of COPD with acute hypoxemic respiratory failure. If the patient is not well controlled with CPAP, I recommend having a low threshold of using BiPAP therapy during the Lexiscan sleep study. 2. We will instruct the patient to stay awake the day before the sleep study and not consume caffeine, so that a better sleep efficiency and longer total sleep time is recorded for adequate titration. 3. Recommend avoiding driving or other activities, requiring vigilance if drowsy. His entire sleep study was reviewed by a board certified sleep physician. <ELECTRONICALLY SIGNED> By: Peter Floyd MD 01/30/20 0800 38 [email or web address] Floyd MD /nt
== END ==
LOC: M.SLEEPLAB 01-05 21:00
PROVIDERS: ATTEND Family Medicine
DX: G47.33 Obstructive sleep apnea (adult) (pediatric) (principal); J15.6 Pneumonia due to other Gram-negative bacteria; J96.21 Acute and chronic respiratory failure with hypoxia

== ENCOUNTER → 2020-03-08 | Outpatient (CLI) | payer OTHER, MEDICAID | LOC: M.SLEEPLAB 02-20 21:00 | PROVIDERS: ATTEND Internal Medicine Critical Care Medicine | DX: G47.33 Obstructive sleep apnea (adult) (pediatric) (principal) ==

== ENCOUNTER → 2020-08-06 | Outpatient (CLI) | payer OTHER, MEDICAID | LOC: M.ULTRA 10:30 | PROVIDERS: ATTEND Surgery Vascular Surgery | DX: I71.4 Abdominal aortic aneurysm, without rupture (principal); I70.0 Atherosclerosis of aorta ==